=== PATIENT | female | born 1940 | race African-American/Black ===

== ENCOUNTER 2020-01-17 13:53 | Inpatient (IN) | payer OTHER ==
--- NOTE | 2020-01-17 14:24 | PDOC ---
*Physical Exam - Physical Exam General Appearance: Yes: Nourished, Appropriately Dressed HEENT: positive: Normal Voice, Hearing Grossly Normal, Other (No mastoid ecchymosis, no periorbital ecchymosis) Neck: positive: Trachea midline, Supple Respiratory/Chest: positive: Lungs Clear, Normal Breath Sounds Cardiovascular: positive: S1, S2. negative: Edema Gastrointestinal/Abdominal: positive: Soft. negative: Distended, Guarding, Rebound, Tenderness, Hernia, Mass Musculoskeletal: positive: Normal Inspection. negative: Decreased Range of Motion Extremity: positive: Normal Capillary Refill, Normal Inspection Integumentary: positive: Normal Color, Dry, Warm Neurologic: positive: greens cutter II-XII NML intact, Alert, Confused. negative: Facial Droop, Disoriented Heart Score/ECG Review - ECG Impressions Comment:: 01/17/20 17:43 HR 86, SR, RBB, LAD - no DARIANA/STD/TWI ED Treatment Course - LABORATORY CBC & Chemistry Diagram: 01/17/20 13:30 01/17/20 13:30 Medical Decision Making - Medical Decision Making 01/17/20 14:57 Patient seen and evaluated as pre-attending with Dr. Crump (PGY-I) and Dr. Linares (Attending) 79 y/o female with a PMHx of NIDDM, CHF and Dementia here s/p fall Patient reports she was walking from her bedroom to the bathroom when she fell backwards on her buttocks. Denies any head trauma or LOC. States she was ambulatory afterward and came to the hospital because her children were concerned. Patient was reported by EMR to be hyperglycemic (BS 500's) in the field. Reports she takes Metformin daily but didn't take her medication today. Dr. Crump spoke with patient's daughter who report a h/o of falls as well as worsening dementia over the last month. Also reports that patient is not on any diabetic medication and in general has a h/o poor adherence to her med ications following the of her spouse earlier this year. VS unremarkable No focal neurologic deficit on PE Will evaluate for fall etiology including cardiac (dysrhtymia, r/o ACS), infectious, electrolyte/metabolic disturbances IV hydration for hyperglycemia. As patient not on diabetic medications will also obtain VBG, check Ketones for possible HHS 01/17/20 16:01 Troponinemia 0.11 EKG without DARIANA as documented in EKG section of EMR Pateint requires admission for serial troponins 01/17/20 16:29 BNP 11k CK 2347 - ? rhabdo, will give additional IV hydration as patient not showing signs of hypervolemia on clinical exam No AG, HCO3 wnL - possibly HHS Corrected Na 144 Cr 3.2 - likely pre-renal 2/2 to decreased PO intake - IV hydration as noted above 01/17/20 17:[address] Crump [facility] for admission Clinical Impression: Hyperglycemia possibly 2/2 to HHS, Troponemia, ? Rhabdomyolysis, Progressive Alzheimer's 01/17/20 18:31 BS 482 s/p 2 L IV NS, K+ wnL - patient insulin naive -will give [address] Crump [facility] hospitalist. 01/17/20 18:43 Will sign out to oncoming resident/Dr. Poole for admission 01/17/20 18:57 Case d/w Dr. Carrera - will admit to telemetry S/p insulin, will recheck sugar (signing out to oncoming resident, Dr. Poole following) Discharge - Discharge Information Problems reviewed: Yes Clinical Impression/Diagnosis: Hyperglycemia, Elevated troponin, Fall, Rhabdomyolysis Condition: Fair - Admission Yes - Follow up/Referral - Patient Discharge Instructions - Post Discharge Activity
[2020-01-17 15:18] LABS: BASO % 0.6 % (0-2.0); EOS % 3.1 % (0-4.5); HEMATOCRIT 31.3 % (32.4-45.2); HEMOGLOBIN 10.6 GM/dL (10.7-15.3); MCH 28.9 pg (25.7-33.7); MCHC 33.8 g/dl (32.0-36.0); MEAN CELL VOLUME 85.6 fl (80-96); MEAN PLT VOLUME 11.8 fl (7.5-11.1); MONO % 7.4 % (3.8-10.2); NEUT % 70.9 % (42.8-82.8); PLATELET COUNT 109 K/MM3 (134-434); RBC 3.66 M/mm3 (3.60-5.2); RDW 17.9 % (11.6-15.6); WHITE BLOOD COUNT 5.1 K/mm3 (4.0-10.0)
[2020-01-17 15:24] LABS: INR 0.92 (0.83-1.09); PROTHROMBIN TIME (PATIENT) 10.9 SEC (9.7-13.0)
[2020-01-17 15:27] LABS: ACTIVATED PTT 28.4 SECONDS (25.2-36.5)
--- NOTE | 2020-01-17 15:31 | PDOC ---
History of Present Illness - General Chief Complaint: Injury Stated Complaint: FALL Time Seen by Provider: 01/17/20 15:05 - History of Present Illness Initial Comments: 01/17/20 15:43 79 y/o F hx of CAD s/p MN in 2017, CHF , NIDDM, HTN, CKD, gout, pacemaker ,CardioMEMS device, dementia presenting today BIBEM s/p fall. She reports getting out of bed and falling to the floor. there was no preceding chest pain, headache or shortness of breath and patient reports there was no LOC. ambulance called by son to scene. pt reports ambulating after incident with assistance, PCP: Dr. Petty, cards; Dr. Gabino Parrish, ROS: GENERAL/CONSTITUTIONAL: No fever or chills. No weakness. HEAD, EYES, EARS, NOSE AND THROAT: No change in vision. No ear pain or discharge. No sore throat. CARDIOVASCULAR: No chest pain or shortness of breath RESPIRATORY: No cough, wheezing, or hemoptysis. GASTROINTESTINAL: No nausea, vomiting, diarrhea or constipation. GENITOURINARY: No dysuria, frequency, or change in urination. MUSCULOSKELETAL: No joint or muscle swelling or pain. No neck or back pain. SKIN: No rash NEUROLOGIC: No headache, vertigo, loss of consciousness, or change in strength/sensation. ENDOCRINE: No increased thirst. No abnormal weight change HEMATOLOGIC/LYMPHATIC: No anemia, easy bleeding, or history of blood clots. ALLERGIC/IMMUNOLOGIC: No hives or skin allergy. PE: GENERAL: AO x1 to person. HEAD: No signs of trauma, normocephalic, atraumatic EYES: PERRLA, EOMI, sclera anicteric, conjunctiva clear ENT: Auricles normal inspection, hearing grossly normal, nares patent, oropharynx clear without exudates. Moist mucosa NECK: Normal ROM, supple, no lymphadenopathy, JVD, or masses LUNGS: No distress, speaks full sentences, clear to auscultation bilaterally HEART: Regular rate and rhythm, normal S1 and S2, no murmurs, rubs or gallops, peripheral pulses normal and equal bilaterally. ABDOMEN: Soft, nontender, normoactive bowel sounds. No guarding, no rebound. No masses EXTREMITIES : Normal inspection, Normal range of motion, no edema. No clubbing or cyanosis. NEUROLOGICAL: Cranial nerves II through XII grossly intact. Normal speech,, no focal sensorimotor deficits SKIN: Warm, Dry, normal turgor, no rashes or lesions noted. lidocaine patch on lower back. 01/17/20 15:54 01/17/20 16:13 01/17/20 16:19 01/17/20 16:58 01/17/20 18:46 Past History - Past Medical History Allergies/Adverse Reactions: Allergies Allergy/AdvReac Type Severity Reaction Status Date / Time No Known Allergies Allergy Verified 01/17/20 14:26 Home Medications: Ambulatory Orders Aspirin [Aspirin EC] 81 mg PO DAILY 01/17/20 Atorvastatin Ca [Lipitor] 80 mg PO HS 01/17/20 Isosorbibe Dinit/Hydralazine [Bidil Tablet] 20 - 37.5 mg PO TID 01/17/20 Metoprolol Succinate 100 mg PO DAILY 01/17/20 Nitroglycerin 0.3 mg SL PRN 01/17/20 Heparin - 5,000 unit SQ BID vial 01/24/20 Insulin Sliding Scale [Novolog Vial Sliding Scale -] 1 vial SQ ACHS units 01/24/20 Repaglinide [Prandin -] 1 mg PO TIDAC tablet 01/24/20 Furosemide [Lasix -] 40 mg PO DAILY tablet 01/27/20 hydrALAZINE HCL [Apresoline -] 10 mg PO BID #0 tablet 01/27/20 COPD: No CHF: Yes Diabetes: Yes HTN: Yes - Immunization History Immunization Up to Date: Yes - Psycho Social/Smoking Cessation Hx Smoking History: Never smoked Have you smoked in the past 12 months: No Information on smoking cessation initiated: No Hx Alcohol Use: No Drug/Substance Use Hx: No *Physical Exam - Vital Signs Last Vital Signs Temp Pulse Resp BP Pulse Ox 98.2 F 88 18 108/72 95 01/17/20 14:27 01/17/20 14:36 01/17/20 14:36 01/17/20 14:36 01/17/20 14:36 ED Treatment Course - LABORATORY CBC & Chemistry Diagram: 01/26/20 05:50 01/27/20 06:05 - ADDITIONAL ORDERS Additional order review: Laboratory Results 01/17/20 01/17/20 15:04 13:30 PT with INR 10.90 INR 0.92 POC Glucometer 495 05/18/20 05/18/20 15:04 13:30 RBC 3.66 MCV 85.6 MCHC 33.8 RDW 17.9 H MPV 11.8 H Neutrophils % 70.9 Lymphocytes % 18.0 Monocytes % 7.4 Eosinophils % 3.1 Basophils % 0.6 POC Glucometer 495 - RADIOLOGY Radiology Studies Ordered: Category Date Time Status CHEST X-RAY PORTABLE* [RAD] Stat Radiology 01/17/20 14:58 Ordered HIP & PELVIS-LEFT [RAD] Stat Radiology 01/17/20 14:58 Ordered HIP & PELVIS-RIGHT [RAD] Stat Radiology 01/17/20 14:58 Ordered Medical Decision Making - Medical Decision Making 01/17/20 16:20 79 y/o F hx of CAD s/p MN in 2017, CHF , NIDDM, HTN, CKD, gout, pacemaker ,CardioMEMS device, dementia presenting today BIBEM s/p fall. daughter: Yeni Hare; [phone] pt BG elevated in the field to 500's per daughter Yeni Hare: pt has been non-compliant over the last month or so with increased forgetfullness s/p of partner. expressing concerns about home health care repeat BGM 495 pt is insulin naive, fluids started 1LNS ekg. ;RBBB ventricular paced rhythm, LAD, no previous ekg for comparison discussion with JOC[facility] Key, and visiting nurse referral order put in place and discussed with daughter, daughter aware of this resource. 01/17/20 16:33 labs remarkable for elevated bnp and troponin repeat troponin ordered repeat bgm 481 after 350cc of NS pt being rehydrated slowly due to heart failure hx and elevated bnp Discharge - Discharge Information Problems reviewed: Yes Clinical Impression/Diagnosis: Hyperglycemia, Elevated troponin, Fall, Rhabdomyolysis Condition: Fair [facility]position: [facility] - Follow up/Referral - Patient Discharge Instructions - Post Discharge Activity
[2020-01-17] MEDS ORDERED: SODIUM CHLORIDE 0.9% 500 ML INFUS.BAG IV ONE ×2 (15:42→17:47)
[2020-01-17 15:46] LABS: ALBUMIN 3.2 g/dl (3.4-5.0); BILIRUBIN,TOTAL 0.5 mg/dL (0.2-1); BLOOD UREA NITROGEN 85.6 mg/dL (7-18); CREATININE 3.2 mg/dL (0.55-1.3); POTASSIUM 3.5 mmol/L (3.5-5.1); TOT PROT 6.1 g/dl (6.4-8.2)
--- NOTE | 2020-01-17 16:20 | PDOC ---
Documentation entered by Laura Chauhan SCRIBE, acting as scribe for Tanvir Linares MD. Tanvir Linares MD: This documentation has been prepared by the Tien chaney Brenda, SCRIBE, under my direction and personally reviewed by me in its entirety. I confirm that the documentation accurately reflects all work, treatment, procedures, and medical decision making performed by me. Attending Attestation - Resident Resident Name: Scott Crump - ED Attending Attestation I have performed the following: I have examined & evaluated the patient, The case was reviewed & discussed with the resident, I agree w/resident's findings & plan, Exceptions are as noted - HPI HPI: 01/17/20 15:24 The patient is an 79 year old female with a significant PMH of NIDDM, alzheimers dementia who presents to [facility] for evaluation s/p fall. Pt reports she was walking in her home when she tripped on the threshold and landed on her buttocks. Denies head strike or back pain. The patient denies chest pain, shortness of breath, headache and dizziness. Denies fever, chills, nausea, vomiting, diarrhea and constipation. Denies dysuria, frequency, urgency and hematuria. Per pt's daughter, the patient lost her partner and main screening tech last month and has barely gotten out of bed. Daughter is concerned that she is not safe alone and needs a home health aide. Per EMS, the pt's glucose was >500. Pt denies taking medications on a daily basis but daughter states she should be taking metformin. Allergies: NKA Past surgical history: Social history: No reported hx of tobacco use, alcohol use or illicit drug use. - Physicial Exam PE: 01/17/20 16:15 Agree with resident exam - Medical Decision Making 01/17/20 16:15 79yo F hx alzheimers presents to the ED with unwitnessed fall. Denies pain, no evidence significant trauma on exam Concern for unsafe conditions at home as pt lost her partner and main career guidance technician last month. Pt also spending most of the day inbed and not taking medications per her daughter W/u thus far concerning for non AG hyperglycemia, and trop leak EKG with conduction delays, no DARIANA Social work consulted Trauma w/u pending, plan to admit for possible syncope, trop leak Heart Score/ECG Review #1 01/17/20 16:19 EKG read and int by me: Sinus rhythm, rate 86. +LAD, RBBB, no DARIANA Discharge - Discharge Information Problems reviewed: Yes Clinical Impression/Diagnosis: Hyperglycemia, Elevated troponin, Fall, Rhabdomyolysis Condition: Fair [facility]position[facility] - Follow up/Referral - Patient Discharge Instructions - Post Discharge Activity
[2020-01-17 16:23] LABS: N-TERMINAL BNP 11536.4 pg/ml (5-450)
[2020-01-17 17:05] LABS: VENOUS PC02 38.2 mmHg (38-52); VENOUS PH 7.49 (7.31-7.41); VENOUS PO2 79.6 mmHg (28-48)
[2020-01-17] MEDS ORDERED: INSULIN REGULAR HUMAN 100 UNITS/ML *VIAL SQ ONE (18:29)
--- NOTE | 2020-01-17 19:33 | HP ---
Admitting History and Physical - Primary Care Physician PCP: Harrison Carrera - Admission Chief Complaint: FALL History of Present Illness: 79 year old female with a significant PMH of NIDDM, alzheimers dementia who presents to [facility] for evaluation s/p fall. Pt reports she was walking in her home when she tripped on the threshold and landed on her buttocks. Denies head strike or back pain. The patient denies chest pain, shortness of breath, headache and dizziness. Denies fever, chills, nausea, vomiting, diarrhea and constipation. Denies dysuria, frequency, urgency and hematuria. Per pt's daughter, the patient lost her partner and main uniform patrol police officer last month and has barely gotten out of bed. Daughter is concerned that she is not safe alone and needs a home health aide. Per EMS, the pt's glucose was >500. Pt denies taking medications on a daily basis but daughter states she should be taking metformin. 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 Endocrine: Yes: Diabetes Mellitus - Smoking History Smoking history: Never smoked Have you smoked in the past 12 months: No - Alcohol/Substance Use Hx Alcohol Use: No Home Medications - Allergies Allergies/Adverse Reactions: Allergies Allergy/AdvReac Type Severity Reaction Status Date / Time No Known Allergies Allergy Verified 01/17/20 14:26 - Home Medications Home Medications: Ambulatory Orders Aspirin [Aspirin EC] 81 mg PO DAILY 01/17/20 Atorvastatin Ca [Lipitor] 80 mg PO HS 01/17/20 Isosorbibe Dinit/Hydralazine [Bidil Tablet] 20 - 37.5 mg PO TID 01/17/20 Metoprolol Succinate 100 mg PO DAILY 01/17/20 Nitroglycerin 0.3 mg SL PRN 01/17/20 Heparin - 5,000 unit SQ BID vial 01/24/20 Insulin Sliding Scale [Novolog Vial Sliding Scale -] 1 vial SQ ACHS units 01/24/20 Repaglinide [Prandin -] 1 mg PO TIDAC tablet 01/24/20 Furosemide [Lasix -] 40 mg PO DAILY tablet 01/27/20 hydrALAZINE HCL [Apresoline -] 10 mg PO BID #0 tablet 01/27/20 Physical Examination Vital Signs: Vital Signs Temperature 98.2 F 01/17/20 14:27 Pulse Rate 88 01/17/20 14:36 Respiratory Rate 18 01/17/20 14:36 Blood Pressure 108/72 01/17/20 14:36 O2 Sat by Pulse Oximetry (%) 95 01/17/20 14:36 Constitutional: Yes: No Distress HENT: Yes: Atraumatic Neck: Yes: Supple Cardiovascular: Yes: Regular Rate and Rhythm Respiratory: Yes: CTA Bilaterally Gastrointestinal: Yes: Normal Bowel Sounds Extremities: Yes: WNL Edema: No Labs: CBC, BMP 01/17/20 13:30 01/17/20 13:30 Problem List - Problems (1) Elevated troponin Assessment/Plan: fu trend cardio consult Code(s): R79.89 - OTHER SPECIFIED ABNORMAL FINDINGS OF BLOOD CHEMISTRY (2) Fall Assessment/Plan: PT need snf Code(s): W19.XXXA - UNSPECIFIED FALL, INITIAL ENCOUNTER (3) Hyperglycemia Code(s): R73.9 - HYPERGLYCEMIA, UNSPECIFIED (4) Rhabdomyolysis Assessment/Plan: on ivf fu cpk Code(s): M62.82 - RHABDOMYOLYSIS (5) Dementia Code(s): F03.90 - UNSPECIFIED DEMENTIA WITHOUT BEHAVIORAL DISTURBANCE (6) Diabetes mellitus Assessment/Plan: on meds follow bgms Code(s): E11.9 - TYPE 2 DIABETES MELLITUS WITHOUT COMPLICATIONS Qualifiers: Diabetes mellitus type: type 2 Diabetes mellitus mcfp insulin use: without meterman use Diabetes mellitus complication status: without complication Qualified Code(s): E11.9 - Type 2 diabetes mellitus without complications (7) HTN (hypertension) Code(s): I10 - ESSENTIAL (PRIMARY) HYPERTENSION Qualifiers: Hypertension type: essential hypertension Qualified Code(s): I10 - E ssential (primary) hypertension (8) Presence of cardiac pacemaker Code(s): Z95.0 - PRESENCE OF CARDIAC PACEMAKER Assessment/Plan Laboratory Tests 01/17/20 01/17/20 01/17/20 13:30 13:30 13:30 WBC 5.1 RBC 3.66 Hgb 10.6 L Hct 31.3 L MCV 85.6 MCH 28.9 MCHC 33.8 RDW 17.9 H Plt Count 109 L MPV 11.8 H Absolute Neuts (auto) 3.6 Neutrophils % 70.9 Lymphocytes % 18.0 Monocytes % 7.4 Eosinophils % 3.1 Basophils % 0.6 Nucleated RBC % 0 PT with INR 10.90 INR 0.92 PTT (Actin FS) 28.4 VBG pH POC VBG pCO2 POC VBG pO2 VBG HCO3 VBG O2 Sat (Richard) VBG Base Excess Sodium 133 L Potassium 3.5 Chloride 93 L Carbon Dioxide 28 Anion Gap 11 BUN 85.6 H Creatinine 3.2 H Est GFR (CKD-EPI)AfAm 15.10 Est GFR (CKD-EPI)NonAf 13.03 POC Glucometer Random Glucose 542 H* Calcium 9.0 Total Bilirubin 0.5 AST 89 H ALT 52 Alkaline Phosphatase 99 Creatine Kinase Creatine Kinase Index CK-MB (CK-2) Troponin I B-Natriuretic Peptide 38776.4 H Total Protein 6.1 L Albumin 3.2 L Beta-Hydroxybutyrate 2.2 01/17/20 01/17/20 01/17/20 15:01 15:04 16:40 WBC RBC Hgb Hct MCV MCH MCHC RDW Plt Count MPV Absolute Neuts (auto) Neutrophils % Lymphocytes % Monocytes % Eosinophils % Basophils % Nucleated RBC % PT with INR INR PTT (Actin FS) VBG pH 7.49 H POC VBG pCO2 38.2 POC VBG pO2 79.6 H VBG HCO3 28.7 VBG O2 Sat (Richard) 96.6 H VBG Base Excess 5.0 H Sodium Potassium Chloride Carbon Dioxide Anion Gap BUN Creatinine Est GFR (CKD-EPI)AfAm Est GFR (CKD-EPI)NonAf POC Glucometer 495 Random Glucose Calcium Total Bilirubin AST ALT Alkaline Phosphatase Creatine Kinase 2347 H Creatine Kinase Index 0.6 CK-MB (CK-2) 15.1 H Troponin I 0.11 H B-Natriuretic Peptide Total Protein Albumin Beta-Hydroxybutyrate 01/17/20 01/17/20 18:12 18:15 WBC RBC Hgb Hct MCV MCH MCHC RDW Plt Count MPV Absolute Neuts (auto) Neutrophils % Lymphocytes % Monocytes % Eosinophils % Basophils % Nucleated RBC % PT with INR INR PTT (Actin FS) VBG pH POC VBG pCO2 POC VBG pO2 VBG HCO3 VBG O2 Sat (Richard) VBG Base Excess Sodium Potassium Chloride Carbon Dioxide Anion Gap BUN Creatinine Est GFR (CKD-EPI)AfAm Est GFR (CKD-EPI)NonAf POC Glucometer 481 Random Glucose Calcium Total Bilirubin AST ALT Alkaline Phosphatase Creatine Kinase Creatine Kinase Index CK-MB (CK-2) Troponin I 0.12 H B-Natriuretic Peptide Total Protein Albumin Beta-Hydroxybutyrate
[2020-01-17] MEDS: INSULIN SLIDING SCALE (NOVOLOG) 1 VIAL SQ SCH (23:01)
[2020-01-17] MEDS: ATORVASTATIN CA 80 MG TABLET (FP) PO SCH (23:04)
[2020-01-17] MEDS: HEPARIN NA (PORCINE) 5,000 UNITS/ML 1ML VIAL SQ SCH (23:04)
[2020-01-17] MEDS: SODIUM CHLORIDE 1,000 ML IV SCH (23:18)
[2020-01-18] MEDS: INSULIN SLIDING SCALE (NOVOLOG) 1 VIAL SQ SCH ×4 (06:47→22:11)
[2020-01-18 08:16] LABS: BASO % 0.4 % (0-2.0); EOS % 1.4 % (0-4.5); HEMATOCRIT 27.5 % (32.4-45.2); HEMOGLOBIN 9.3 GM/dL (10.7-15.3); LYMPH % 17.1 % (8-40); MCH 28.7 pg (25.7-33.7); MCHC 33.8 g/dl (32.0-36.0); MEAN CELL VOLUME 84.9 fl (80-96); MEAN PLT VOLUME 11.4 fl (7.5-11.1); MONO % 10.4 % (3.8-10.2); NEUT % 70.7 % (42.8-82.8); PLATELET COUNT 103 K/MM3 (134-434); RBC 3.24 M/mm3 (3.60-5.2); RDW 17.9 % (11.6-15.6); WHITE BLOOD COUNT 4.4 K/mm3 (4.0-10.0)
[2020-01-18 08:49] LABS: ALBUMIN 2.8 g/dl (3.4-5.0); BILIRUBIN,TOTAL 0.6 mg/dL (0.2-1); BLOOD UREA NITROGEN 75.3 mg/dL (7-18); CALCIUM 8.8 mg/dL (8.5-10.1); CREATININE 2.5 mg/dL (0.55-1.3); TOT PROT 5.3 g/dl (6.4-8.2)
[2020-01-18 09:05] LABS: EPI CELLS 30 /uL (0-25.1); HYALINE CASTS 0 /uL (0-3.1); PH,URINE 5.5 (5.0-8.0); URINE APPEARANCE CLOUDY; URINE BACTERIA 1529 /uL (0-1359); URINE BILIRUBIN NEGATIVE (NEGATIVE); URINE COLOR YELLOW; URINE GLUCOSE (UA) 1+ (NEGATIVE); URINE KETONE NEGATIVE (NEGATIVE); URINE LEUK ESTERASE NEGATIVE (NEGATIVE); URINE NITRITE NEGATIVE (NEGATIVE); URINE PROTEIN TRACE (NEGATIVE); URINE RBC 21 /uL (0-23.9); URINE UROBILINOGEN 0.2 mg/dL (0.2-1.0); URINE WBC 7 /uL (0-25.8)
[2020-01-18] MEDS: ASPIRIN COATED 81 MG TABLET.EC PO SCH (09:35)
[2020-01-18] MEDS: HEPARIN NA (PORCINE) 5,000 UNITS/ML 1ML VIAL SQ SCH ×2 (09:35→22:04)
--- NOTE | 2020-01-18 11:42 | EKG ---
Test Reason : Blood Pressure : / mmHG Vent. Rate : 086 BPM Atrial Rate : 086 BPM P-R Int : 184 ms QRS Dur : 140 ms QT Int : 434 ms P-R-T Axes : 029 -62 152 degrees QTc Int : 519 ms POOR DATA QUALITY, INTERPRETATION MAY BE ADVERSELY AFFECTED SINUS RHYTHM WITH MARKED SINUS ARRHYTHMIA WITH FREQUENT ventricular-paced complexes LEFT AXIS DEVIATION RIGHT BUNDLE BRANCH BLOCK LEFT VENTRICULAR HYPERTROPHY WITH REPOLARIZATION ABNORMALITY CANNOT RULE OUT SEPTAL INFARCT , AGE UNDETERMINED ABNORMAL ECG WHEN COMPARED WITH ECG OF 26-AUG-2011 18:43, ELECTRONIC VENTRICULAR PACEMAKER HAS REPLACED SINUS RHYTHM Confirmed by MD Son, Desmond ([id number]) on 01/18/2020 11:42:16 AM Referred By: Confirmed By:Desmond Cline MD
--- NOTE | 2020-01-18 12:18 | CON.CARD ---
Consult Consult Specialty:: Cardiology Referred by:: Dr. Carrera Reason for Consultation:: Cardiac evaluation - History of Present Illness Chief Complaint: Fall without LOC History of Present Illness: Patient is an 79 year old female with underlying history of CAD, OK, NIDDM, HTN, CKD, sick sinus syndrome s/p PPM, history of CHF and presence of CardioMEMS device who presented after falling to the floor getting out of the bed. She denies LOC. She denies chest pain, shortness of breath or palpitations. She denies fever or chills. She denies nausea, vomiting, diarrhea or abdominal pain. She denies headache or lightheadedness. She denies cough or expectorations. PCP: Dr. Petty, Cardiology: Dr. 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 Cardio/Vascular: Yes: CAD, CHF, HTN, Other (Pacemaker, CardioMEMS device) Renal/: Yes: Renal Inusuff Endocrine: Yes: Diabetes Mellitus - Past Surgical History Past Surgical History: Yes: Permanent Pacemaker Additional Surgical History: CardioMEMS device - Alcohol/Substance Use Hx Alcohol Use: No - Smoking History Smoking history: Never smoked Have you smoked in the past 12 months: No Home Medications - Allergies Allergies/Adverse Reactions: Allergies Allergy/AdvReac Type Severity Reaction Status Date / Time No Known Allergies Allergy Verified 01/17/20 14:26 - Home Medications Home Medications: Ambulatory Orders Aspirin [Aspirin EC] 81 mg PO DAILY 01/17/20 Atorvastatin Ca [Lipitor] 80 mg PO HS 01/17/20 Furosemide 60 mg PO BID 01/17/20 Isosorbibe Dinit/Hydralazine [Bidil Tablet] 20 - 37.5 mg PO TID 01/17/20 Metoprolol Succinate 100 mg PO DAILY 01/17/20 Nitroglycerin 0.3 mg SL PRN 01/17/20 Review of Systems - Review of Systems Constitutional: denies: Chills, Fever Cardiovascular: denies: Chest Pain, Palpitations, Shortness of Breath Respiratory: denies: Cough, Hemoptysis, Orthopnea, PND, SOB, SOB on Exertion Gastrointestinal: denies: Abdominal Pain, Constipation, Diarrhea, Melena, Nausea, Rectal Bleeding, Vomiting Genitourinary: denies: Dysuria, Hematuria Musculoskeletal: denies: Joint Pain Neurological: denies: Dizziness, Headache, Seizure, Syncope Vital Signs: Vital Signs Temperature 97.5 F L 01/18/20 10:44 Pulse Rate 90 01/18/20 10:44 Respiratory Rate 18 01/18/20 10:44 Blood Pressure 116/60 01/18/20 10:44 O2 Sat by Pulse Oximetry (%) 97 01/18/20 09:00 HENT: Yes: Atraumatic Neck: Yes: Supple Respiratory: Yes: CTA Bilaterally Gastrointestinal: Yes: Normal Bowel Sounds, Soft. No: Tenderness Cardiovascular: Yes: Regular Rate and Rhythm JVD: No Carotid Bruit: No PMI: Non-Displaced Heart Sounds: Yes: S1, S2. No: Gallop Murmur: No: Systolic Murmur, Diastolic Murmur Edema: No - Other Data Labs, Other Data: CBC, BMP 01/18/20 06:50 01/18/20 06:50 INR, PTT INR 0.92 (0.83-1.09) 01/17/20 13:30 Troponin, BNP 01/17/20 01/17/20 01/17/20 13:30 15:01 18:15 Troponin I 0.11 H 0.12 H B-Natriuretic Peptide 57428.4 H 01/17/20 21:40 Troponin I 0.11 H B-Natriuretic Peptide Sinus rhythm with sinus arrhythmia, RBBB Imaging - Results Chest X-ray: Report Reviewed EKG: Report Reviewed Problem List - Problems (1) CAD (coronary artery disease) Code(s): I25.10 - ATHSCL HEART DISEASE OF [place] CORONARY ARTERY W/O ANG PCTRS (2) Diabetes mellitus Code(s): E11.9 - TYPE 2 DIABETES MELLITUS WITHOUT COMPLICATIONS Qualifiers: Diabetes mellitus type: type 2 Diabetes mellitus half-way insulin use: without half-way use Diabetes mellitus complication status: without complication Qualified Code(s): E11.9 - Type 2 diabetes mellitus without complications (3) HTN (hypertension) Code(s): I10 - ESSENTIAL (PRIMARY) HYPERTENSION Qualifiers: Hypertension type: essential hypertension Qualified Code(s): I10 - Essential (primary) hypertension (4) Presence of cardiac pacemaker Code(s): Z95.0 - PRESENCE OF CARDIAC PACEMAKER (5) Elevated troponin Code(s): R79.89 - OTHER SPECIFIED ABNORMAL FINDINGS OF BLOOD CHEMISTRY (6) Fall Code(s): W19.XXXA - UNSPECIFIED FALL, INITIAL ENCOUNTER Assessment/Plan 1. Fall with weakness, no LOC 2. HTN 3. CAD with history of OK, angina pectoris 4. DM 5. History of CHF s/p CardioMEMS device 6. Sick sinus syndrome s/p PPM 7. CKD PLAN: 1. Continue Metoprolol ER 100 mg QD and ASA 81 mg QD 2. DVT prophylaxis 3. Lipitor 4. Monitor renal function and electrolytes. K supplement Further plans are to follow Stefan Colvin MD
--- NOTE | 2020-01-18 17:29 | CONSULT ---
Consult - text type - Consultation Consultation Note: NEUROLOGY CONSULTATION is greatly appreciated: This 79 yo RH "" woman lives alone but her son "helps." Apparently her partner and caregiver recently and she has failed to thrive on her own, apparently noncompliant with meds. PMH sig for DM, HTN, Cholesterol, ASHD, and "dementia." She is maintained on: Aspirin 81; Atorvastatin; Furosemide; Isosorbide; Metoprolol; and Nitroglycerin 0.3 mg SL PRN Admitted after fall at home. Patient cannot recall any prodromal symptoms. On admission Glucose= 542 mg%; VD=8677 IU/L. Urine WBC=7 XRays of hips and pelvis without fractures. REDDY: No evidence of external head trauma. No bruits. Cor reg. Neg Patricks. NEURO: Awake, alert cooperative and friendly (wants a hug and a kiss). Gives her age as 84. O x November. In [place]. Recalls [facility] but not December at 3 mins. Neg frontal release signs Speech fluent. CN II-XII: normal Motor: No drift or tremor. No cogwheeling. Normal strength. Normal reflexes except absent AJ's. Toes downgoing. Coord: No FTN dystaxia Sensory: Reduced vibration in the feet Gait: Wide-based, shuffling, unsteady, retropulsive. IMP: Non-focal exam sig for Moderate, B/L cerebral dysfunction (OMS, chronic features)- Most likely Alzheimer's Disease (AD). Diabetic Peripheral neuropathy Toxic-Metabolic Encephalopathy due to hyperglycemia Rhabdomyalysis due to fall, pressure changes. SUGGEST: Control BG, R/O occult infection Check B12, TSH, RPR and Follow CK down CT or MRI of brain (C-) PT for gait safety with walker. Will need home supervision or SNF level of care. Thank you very much, Gabino De Paz MD
--- NOTE | 2020-01-18 21:22 | PN ---
Progress Note, Physician History of Present Illness: No new complaints - Current Medication List Current Medications: Active Medications Aspirin (Ecotrin -) 81 mg PO DAILY [facility] Last Admin: 01/18/20 09:35 Dose: 81 mg Documented by: Atorvastatin Calcium (Lipitor -) 80 mg PO HS [facility] Last Admin: 01/17/20 23:04 Dose: 80 mg Documented by: Heparin Sodium (Porcine) (Heparin -) 5,000 unit SQ BID [facility] Last Admin: 01/18/20 09:35 Dose: 5,000 unit Documented by: Sodium Chloride (Normal Saline -) 1,000 mls @ 75 mls/hr IV ASDIR [facility] Last Admin: 01/17/20 23:18 Dose: 75 mls/hr Documented by: Insulin Aspart (Novolog Vial Sliding Scale -) 1 vial SQ ACHS [facility]; Protocol Last Admin: 01/18/20 17:08 Dose: 4 units Documented by: Metoprolol Succinate (Toprol Xl -) 100 mg PO DAILY [facility] Last Admin: 01/18/20 09:35 Dose: 100 mg Documented by: - Objective Vital Signs: Vital Signs Temperature 98.5 F 01/18/20 18:00 Pulse Rate 81 01/18/20 18:00 Respiratory Rate 18 01/18/20 18:00 Blood Pressure 133/75 01/18/20 18:00 O2 Sat by Pulse Oximetry (%) 97 01/18/20 09:00 Cardiovascular: Yes: WNL, Regular Rate and Rhythm Respiratory: Yes: WNL, Regular, CTA Bilaterally Gastrointestinal: Yes: WNL, Normal Bowel Sounds, Soft Labs: CBC, BMP 01/18/20 06:50 01/18/20 06:50 INR, PTT INR 0.92 (0.83-1.09) 01/17/20 13:30 Problem List - Problems (1) Fall Assessment/Plan: Neuro consulot noted Urine culture pending COVID pending Check MRI brain PT eval Will probably need placement Code(s): W19.XXXA - UNSPECIFIED FALL, INITIAL ENCOUNTER (2) Elevated troponin Assessment/Plan: Probable demand ischemia Code(s): R79.89 - OTHER SPECIFIED ABNORMAL FINDINGS OF BLOOD CHEMISTRY (3) HTN (hypertension) Assessment/Plan: Cont metoprolol/asa Code(s): I10 - ESSENTIAL (PRIMARY) HYPERTENSION Qualifiers: Hypertension type: essential hypertension Qualified Code(s): I10 - Essential (primary) hypertension (4) Diabetes mellitus Assessment/Plan: Cont sliding scale w/ coverage Code(s): E11.9 - TYPE 2 DIABETES MELLITUS WITHOUT COMPLICATIONS Qualifiers: Diabetes mellitus type: type 2 Diabetes mellitus [facility] insulin use: without termite control technician use Diabetes mellitus complication status: without complication Qualified Code(s): E11.9 - Type 2 diabetes mellitus without complications (5) CAD (coronary artery disease) Code(s): I25.10 - ATHSCL HEART DISEASE OF [place] CORONARY ARTERY W/O ANG PCTRS (6) Dementia Code(s): F03.90 - UNSPECIFIED DEMENTIA WITHOUT BEHAVIORAL DISTURBANCE
[2020-01-18] MEDS ORDERED: POTASSIUM CHLORIDE TABS 20 MEQ TABLET.ER (FP) PO ONE (21:30)
[2020-01-18] MEDS: ATORVASTATIN CA 80 MG TABLET (FP) PO SCH (22:04)
[2020-01-19] MEDS: INSULIN SLIDING SCALE (NOVOLOG) 1 VIAL SQ SCH ×4 (06:10→21:34)
[2020-01-19] MEDS: HEPARIN NA (PORCINE) 5,000 UNITS/ML 1ML VIAL SQ SCH ×2 (10:23→21:31)
[2020-01-19] MEDS: ASPIRIN COATED 81 MG TABLET.EC PO SCH (10:23)
--- NOTE | 2020-01-19 10:36 | PN ---
Progress Note, Physician History of Present Illness: Denies near or true syncope, denies chest pain, palpitations, dyspnea or recurrent fall. - Current Medication List Current Medications: Active Medications Aspirin (Ecotrin -) 81 mg PO DAILY [facility] Last Admin: 01/19/20 10:23 Dose: 81 mg Documented by: Atorvastatin Calcium (Lipitor -) 80 mg PO HS [facility] Last Admin: 01/18/20 22:04 Dose: 80 mg Documented by: Heparin Sodium (Porcine) (Heparin -) 5,000 unit SQ BID [facility] Last Admin: 01/19/20 10:23 Dose: 5,000 unit Documented by: Sodium Chloride (Normal Saline -) 1,000 mls @ 75 mls/hr IV ASDIR [facility] Last Admin: 01/17/20 23:18 Dose: 75 mls/hr Documented by: Insulin Aspart (Novolog Vial Sliding Scale -) 1 vial SQ ACHS [facility]; Protocol Last Admin: 01/19/20 06:10 Dose: 4 units Documented by: Metoprolol Succinate (Toprol Xl -) 100 mg PO DAILY [facility] Last Admin: 01/19/20 10:23 Dose: 100 mg Documented by: - Objective Vital Signs: Vital Signs Temperature 97.5 F L 01/19/20 10:23 Pulse Rate 76 01/19/20 10:23 Respiratory Rate 20 01/19/20 10:23 Blood Pressure 109/46 L 01/19/20 10:23 O2 Sat by Pulse Oximetry (%) 98 01/18/20 21:00 Constitutional: Yes: No Distress, Calm Neck: Yes: Supple Cardiovascular: Yes: Regular Rate and Rhythm Respiratory: Yes: Regular, CTA Bilaterally Gastrointestinal: Yes: Normal Bowel Sounds, Soft Edema: No Labs: CBC, BMP 01/18/20 06:50 01/18/20 06:50 INR, PTT INR 0.92 (0.83-1.09) 01/17/20 13:30 Assessment/Plan Problem List - Problems (1) CAD (coronary artery disease) Code(s): I25.10 - ATHSCL HEART DISEASE OF [place] CORONARY ARTERY W/O ANG PCTRS (2) Diabetes mellitus Code(s): E11.9 - TYPE 2 DIABETES MELLITUS WITHOUT COMPLICATIONS Qualifiers: Diabetes mellitus type: type 2 Diabetes mellitus prison insulin use: without prison use Diabetes mellitus complication status: without co mplication Qualified Code(s): E11.9 - Type 2 diabetes mellitus without co mplications (3) HTN (hypertension) Code(s): I10 - ESSENTIAL (PRIMARY) HYPERTENSION Qualifiers: Hypertension type: essential hypertension Qualified Code(s): I10 - Essential (primary) hypertension (4) Presence of cardiac pacemaker Code(s): Z95.0 - PRESENCE OF CARDIAC PACEMAKER (5) Elevated troponin Code(s): R79.89 - OTHER SPECIFIED ABNORMAL FINDINGS OF BLOOD CHEMISTRY (6) Fall Code(s): W19.XXXA - UNSPECIFIED FALL, INITIAL ENCOUNTER Assessment/Plan 1. Fall with weakness, no LOC 2. HTN 3. CAD with history of [place], angina pectoris 4. DM with peripheral neuropathy 5. CHF s/p CardioMEMS device 6. Sick sinus syndrome s/p PPM 7. CKD 8. Toxic-Metabolic Encephalopathy due to hyperglycemia 9. Dementia 10. Hyperlipidemia PLAN: 1. Continue Metoprolol ER 100 mg QD and ASA 81 mg QD 2. DVT prophylaxis 3. Lipitor 80 qd 4. Monitor renal function and electrolytes. K supplement 5. Neuro recommendations noted 6. Eventual f/u with Dr. Desmond Parrish at [facility]
--- NOTE | 2020-01-19 17:19 | PN ---
Progress Note, Physician History of Present Illness: stable - Current Medication List Current Medications: Active Medications Aspirin (Ecotrin -) 81 mg PO DAILY [facility] Last Admin: 01/19/20 10:23 Dose: 81 mg Documented by: Atorvastatin Calcium (Lipitor -) 80 mg PO HS [facility] Last Admin: 01/18/20 22:04 Dose: 80 mg Documented by: Heparin Sodium (Porcine) (Heparin -) 5,000 unit SQ BID [facility] Last Admin: 01/19/20 10:23 Dose: 5,000 unit Documented by: Sodium Chloride (Normal Saline -) 1,000 mls @ 75 mls/hr IV ASDIR [facility] Last Admin: 01/17/20 23:18 Dose: 75 mls/hr Documented by: Insulin Aspart (Novolog Vial Sliding Scale -) 1 vial SQ ACHS [facility]; Protocol Last Admin: 01/19/20 12:03 Dose: 6 units Documented by: Metoprolol Succinate (Toprol Xl -) 100 mg PO DAILY [facility] Last Admin: 01/19/20 10:23 Dose: 100 mg Documented by: - Objective Vital Signs: Vital Signs Temperature 97.7 F 01/19/20 14:10 Pulse Rate 79 01/19/20 14:10 Respiratory Rate 20 01/19/20 14:10 Blood Pressure 102/57 L 01/19/20 14:10 O2 Sat by Pulse Oximetry (%) 98 01/18/20 21:00 Constitutional: Yes: No Distress HENT: Yes: Atraumatic Neck: Yes: Supple Cardiovascular: Yes: Regular Rate and Rhythm Respiratory: Yes: CTA Bilaterally Gastrointestinal: Yes: Normal Bowel Sounds Extremities: Yes: WNL Edema: No Neurological: Yes: Alert, Oriented Labs: CBC, BMP 01/18/20 06:50 01/18/20 06:50 INR, PTT INR 0.92 (0.83-1.09) 01/17/20 13:30 Problem List - Problems (1) Elevated troponin Assessment/Plan: trending..staying in same range Code(s): R79.89 - OTHER SPECIFIED ABNORMAL FINDINGS OF BLOOD CHEMISTRY (2) Fall Assessment/Plan: PT need snf Code(s): W19.XXXA - UNSPECIFIED FALL, INITIAL ENCOUNTER (3) Hyperglycemia Code(s): R73.9 - HYPERGLYCEMIA, UNSPECIFIED (4) Rhabdomyolysis Assessment/Plan: on ivf monitor cpk Code(s): M62.82 - RHABDOMYOLYSIS (5) CAD (coronary artery disease) Code(s): I25.10 - ATHSCL HEART DISEASE OF [place] CORONARY ARTERY W/O ANG PCTRS (6) Dementia Code(s): F03.90 - UNSPECIFIED DEMENTIA WITHOUT BEHAVIORAL DISTURBANCE (7) Diabetes mellitus Assessment/Plan: on meds follow bgms Code(s): E11.9 - TYPE 2 DIABETES MELLITUS WITHOUT COMPLICATIONS Qualifiers: Diabetes mellitus type: type 2 Diabetes mellitus [facility] insulin use: without [facility] use Diabetes mellitus complication status: without complication Qualified Code(s): E11.9 - Type 2 diabetes mellitus without complications (8) HTN (hypertension) Code(s): I10 - ESSENTIAL (PRIMARY) HYPERTENSION Qualifiers: Hypertension type: essential hypertension Qualified Code(s): I10 - Essential (primary) hypertension (9) Presence of cardiac pacemaker Code(s): Z95.0 - PRESENCE OF CARDIAC PACEMAKER
[2020-01-19] MEDS: ATORVASTATIN CA 80 MG TABLET (FP) PO SCH (21:31)
[2020-01-19] MEDS: SODIUM CHLORIDE 1,000 ML IV SCH (21:34)
[2020-01-20] MEDS: INSULIN SLIDING SCALE (NOVOLOG) 1 VIAL SQ SCH ×4 (06:19→21:41)
[2020-01-20 07:32] LABS: BASO % 0.6 % (0-2.0); EOS % 2.9 % (0-4.5); HEMATOCRIT 26.2 % (32.4-45.2); HEMOGLOBIN 8.9 GM/dL (10.7-15.3); LYMPH % 22.7 % (8-40); MCHC 33.9 g/dl (32.0-36.0); MEAN CELL VOLUME 85.4 fl (80-96); MEAN PLT VOLUME 11.5 fl (7.5-11.1); MONO % 12.2 % (3.8-10.2); NEUT % 61.6 % (42.8-82.8); PLATELET COUNT 121 K/MM3 (134-434); RBC 3.06 M/mm3 (3.60-5.2); RDW 18.3 % (11.6-15.6); WHITE BLOOD COUNT 3.9 K/mm3 (4.0-10.0)
[2020-01-20 08:18] LABS: ALBUMIN 2.6 g/dl (3.4-5.0); BILIRUBIN,TOTAL 0.4 mg/dL (0.2-1); BLOOD UREA NITROGEN 61.4 mg/dL (7-18); CALCIUM 8.3 mg/dL (8.5-10.1); CREATININE 2.2 mg/dL (0.55-1.3); POTASSIUM 3.6 mmol/L (3.5-5.1); TOT PROT 4.9 g/dl (6.4-8.2)
--- NOTE | 2020-01-20 09:40 | PN ---
Progress Note, Physician History of Present Illness: Denies near or true syncope, denies chest pain, palpitations, dyspnea or recurrent fall. - Current Medication List Current Medications: Active Medications Aspirin (Ecotrin -) 81 mg PO DAILY [facility] Last Admin: 01/19/20 10:23 Dose: 81 mg Documented by: Atorvastatin Calcium (Lipitor -) 80 mg PO HS [facility] Last Admin: 01/19/20 21:31 Dose: 80 mg Documented by: Heparin Sodium (Porcine) (Heparin -) 5,000 unit SQ BID [facility] Last Admin: 01/19/20 21:31 Dose: 5,000 unit Documented by: Sodium Chloride (Normal Saline -) 1,000 mls @ 75 mls/hr IV ASDIR [facility] Last Admin: 01/19/20 21:34 Dose: Not Given Documented by: Insulin Aspart (Novolog Vial Sliding Scale -) 1 vial SQ ACHS [facility]; Protocol Last Admin: 01/20/20 06:19 Dose: 4 units Documented by: Metoprolol Succinate (Toprol Xl -) 100 mg PO DAILY [facility] Last Admin: 01/19/20 10:23 Dose: 100 mg Documented by: - Objective Vital Signs: Vital Signs Temperature 97.6 F 01/20/20 05:00 Pulse Rate 81 01/20/20 05:00 Respiratory Rate 18 01/20/20 05:00 Blood Pressure 102/50 L 01/20/20 05:00 O2 Sat by Pulse Oximetry (%) 94 L 01/19/20 21:00 Constitutional: Yes: No Distress, Calm Neck: Yes: Supple Cardiovascular: Yes: Regular Rate and Rhythm Respiratory: Yes: Regular, CTA Bilaterally Gastrointestinal: Yes: Normal Bowel Sounds, Soft Edema: No Labs: CBC, BMP 01/20/20 05:45 01/20/20 05:45 INR, PTT INR 0.92 (0.83-1.09) 01/17/20 13:30 Assessment/Plan Problem List - Problems (1) CAD (coronary artery disease) Code(s): I25.10 - ATHSCL HEART DISEASE OF [place] CORONARY ARTERY W/O ANG PCTRS (2) Diabetes mellitus Code(s): E11.9 - TYPE 2 DIABETES MELLITUS WITHOUT COMPLICATIONS Qualifiers: Diabetes mellitus type: type 2 Diabetes mellitus prison insulin use: without prison use Diabetes mellitus complication status: without co mplication Qualified Code(s): E11.9 - Type 2 diabetes mellitus without co mplications (3) HTN (hypertension) Code(s): I10 - ESSENTIAL (PRIMARY) HYPERTENSION Qualifiers: Hypertension type: essential hypertension Qualified Code(s): I10 - Essential (primary) hypertension (4) Presence of cardiac pacemaker Code(s): Z95.0 - PRESENCE OF CARDIAC PACEMAKER (5) Elevated troponin Code(s): R79.89 - OTHER SPECIFIED ABNORMAL FINDINGS OF BLOOD CHEMISTRY (6) Fall Code(s): W19.XXXA - UNSPECIFIED FALL, INITIAL ENCOUNTER Assessment/Plan 1. Fall with weakness, no LOC 2. HTN 3. CAD with history of [place], angina pectoris 4. DM with peripheral neuropathy 5. CHF s/p CardioMEMS device 6. Sick sinus syndrome s/p PPM 7. Acute on CKD improving 8. Toxic-Metabolic Encephalopathy due to hyperglycemia 9. Dementia 10. Hyperlipidemia PLAN: 1. Continue Metoprolol ER 100 mg QD and ASA 81 mg QD 2. DVT prophylaxis 3. Lipitor 80 qd 4. Monitor renal function and electrolytes. 5. Neuro recommendations noted 6. D/c planning, eventual f/u with Dr. Desmond Parrish at [facility]
[2020-01-20] MEDS: HEPARIN NA (PORCINE) 5,000 UNITS/ML 1ML VIAL SQ SCH ×2 (09:54→21:12)
[2020-01-20] MEDS: ASPIRIN COATED 81 MG TABLET.EC PO SCH (09:54)
--- NOTE | 2020-01-20 17:24 | CONSULT ---
Consult - text type - Consultation Consultation Note: Chart reviewed. Case discussed with Dr Carrera. Pt with h/o admission to this hospital in 2010 with Lipase of 1188 on 08.26.11. During current admission Creatinine has fluctuated from 3.2 to 1.8. FS has been fluctuating between low 100 to 250 in the last 48 hrs on Novolog sliding scale. Pt has needed around 16 units of Insulin per day. Rec: Start Levemir 10 units daily at HS Change Novolog SS coverage TID premeals only as follow <200: None 200 to 250: 2 units 251 to 300: 4 units 301 to 350: 6 units 351 to 400: 8 units >400: Call MD Would not start DDP4 b/o h/o Pancreatitis. Metformin is cont raindicated b/o renal insufficiency. If pt is to be discharged home and is not able to take Insulin at home, she may be started on Prandin 1mg BID premeal and dose adjusted as necessary according to FS record.
[2020-01-20] MEDS: ATORVASTATIN CA 80 MG TABLET (FP) PO SCH (21:16)
[2020-01-20] MEDS ORDERED: LORazepam 0.5 MG TABLET PO ONE (22:15)
--- NOTE | 2020-01-20 22:40 | PN ---
Progress Note, Physician History of Present Illness: No new complaints - Current Medication List Current Medications: Active Medications Aspirin (Ecotrin -) 81 mg PO DAILY [facility] Last Admin: 01/20/20 09:54 Dose: 81 mg Documented by: Atorvastatin Calcium (Lipitor -) 80 mg PO HS [facility] Last Admin: 01/20/20 21:16 Dose: 80 mg Documented by: Heparin Sodium (Porcine) (Heparin -) 5,000 unit SQ BID [facility] Last Admin: 01/20/20 21:12 Dose: 5,000 unit Documented by: Sodium Chloride (Normal Saline -) 1,000 mls @ 75 mls/hr IV ASDIR [facility] Last Admin: 01/19/20 21:34 Dose: Not Given Documented by: Insulin Aspart (Novolog Vial Sliding Scale -) 1 vial SQ [facility]; Protocol Last Admin: 01/20/20 21:41 Dose: Not Given Documented by: Metoprolol Succinate (Toprol Xl -) 100 mg PO DAILY [facility] Last Admin: 01/20/20 09:54 Dose: 100 mg Documented by: Repaglinide (Prandin -) 1 mg PO BID@0700,1700 [facility] - Objective Vital Signs: Vital Signs Temperature 97.5 F L 01/20/20 18:00 Pulse Rate 89 01/20/20 18:00 Respiratory Rate 20 01/20/20 18:00 Blood Pressure 108/64 01/20/20 18:00 O2 Sat by Pulse Oximetry (%) 94 L 01/20/20 09:00 Neck: Yes: WNL, Supple Cardiovascular: Yes: WNL, Regular Rate and Rhythm Respiratory: Yes: WNL, Regular, CTA Bilaterally Gastrointestinal: Yes: WNL, Normal Bowel Sounds, Soft Labs: CBC, BMP 01/20/20 05:45 01/20/20 05:45 INR, PTT INR 0.92 (0.83-1.09) 01/17/20 13:30 Problem List - Problems (1) Fall Assessment/Plan: Neuro consulot noted Urine culture pending COVID pending Check MRI brain PT eval Will probably need placement Code(s): W19.XXXA - UNSPECIFIED FALL, INITIAL ENCOUNTER (2) Elevated troponin Assessment/Plan: Probable demand ischemia Cont to trend Increase CPK ?Rhabdo Cont IVF Code(s): R79.89 - OTHER SPECIFIED ABNORMAL FINDINGS OF BLOOD CHEMISTRY (3) HTN (hypertension) Assessment/Plan: Cont metoprolol/asa Code(s): I10 - ESSENTIAL (PRIMARY) HYPERTENSION Qualifiers: Hypertension type: essential hypertension Qualified Code(s): I10 - Essential (primary) hypertension (4) Diabetes mellitus Assessment/Plan: Cont sliding scale w/ coverage Endo consult noted Prandin added Code(s): E11.9 - TYPE 2 DIABETES MELLITUS WITHOUT COMPLICATIONS Qualifiers: Diabetes mellitus type: type 2 Diabetes mellitus shelter insulin use: without shelter use Diabetes mellitus complication status: without complication Qualified Code(s): E11.9 - Type 2 diabetes mellitus without complications (5) CAD (coronary artery disease) Code(s): I25.10 - ATHSCL HEART DISEASE OF [place] CORONARY ARTERY W/O ANG PCTRS (6) Dementia Code(s): F03.90 - UNSPECIFIED DEMENTIA WITHOUT BEHAVIORAL DISTURBANCE
[2020-01-21] MEDS: INSULIN SLIDING SCALE (NOVOLOG) 1 VIAL SQ SCH ×4 (06:08→21:55)
[2020-01-21] MEDS: REPAGLINIDE 0.5 MG TABLET (FP) PO SCH ×2 (06:23→18:45)
[2020-01-21 07:34] LABS: BASO % 1.1 % (0-2.0); EOS % 3.1 % (0-4.5); HEMATOCRIT 29.1 % (32.4-45.2); HEMOGLOBIN 9.7 GM/dL (10.7-15.3); MCH 28.7 pg (25.7-33.7); MCHC 33.2 g/dl (32.0-36.0); MEAN CELL VOLUME 86.7 fl (80-96); MEAN PLT VOLUME 11.4 fl (7.5-11.1); MONO % 10.9 % (3.8-10.2); NEUT % 57.9 % (42.8-82.8); PLATELET COUNT 136 K/MM3 (134-434); RBC 3.36 M/mm3 (3.60-5.2); RDW 18.4 % (11.6-15.6); WHITE BLOOD COUNT 4.5 K/mm3 (4.0-10.0)
[2020-01-21 07:52] LABS: ALBUMIN 2.9 g/dl (3.4-5.0); BILIRUBIN,TOTAL 0.5 mg/dL (0.2-1); BLOOD UREA NITROGEN 54.3 mg/dL (7-18); CALCIUM 8.7 mg/dL (8.5-10.1); CREATININE 2.1 mg/dL (0.55-1.3); TOT PROT 5.6 g/dl (6.4-8.2)
[2020-01-21] MEDS: SODIUM CHLORIDE 1,000 ML IV SCH ×2 (09:00→21:54)
[2020-01-21] MEDS: HEPARIN NA (PORCINE) 5,000 UNITS/ML 1ML VIAL SQ SCH ×2 (09:25→21:54)
[2020-01-21] MEDS: ASPIRIN COATED 81 MG TABLET.EC PO SCH (09:25)
--- NOTE | 2020-01-21 09:36 | PN ---
Progress Note (short form) - Note Progress Note: No acute cardiac issues, pending d/c planning Vital Signs Temperature 98.5 F 01/21/20 09:00 Pulse Rate 78 01/21/20 09:00 Respiratory Rate 20 01/21/20 09:00 Blood Pressure 102/41 L 01/21/20 09:00 O2 Sat by Pulse Oximetry (%) 94 L 01/20/20 21:00 Cardiovascular: Yes: Regular Rate and Rhythm Respiratory: Yes: Regular, CTA Bilaterally Edema: No CBC, BMP 01/21/20 07:05 01/21/20 07:05 Active Medications Aspirin (Ecotrin -) 81 mg PO DAILY [facility] Last Admin: 01/21/20 09:25 Dose: 81 mg Documented by: Atorvastatin Calcium (Lipitor -) 80 mg PO HS [facility] Last Admin: 01/20/20 21:16 Dose: 80 mg Documented by: Heparin Sodium (Porcine) (Heparin -) 5,000 unit SQ BID [facility] Last Admin: 01/21/20 09:25 Dose: 5,000 unit Documented by: Sodium Chloride (Normal Saline -) 1,000 mls @ 75 mls/hr IV ASDIR [facility] Last Admin: 01/19/20 21:34 Dose: Not Given Documented by: Insulin Aspart (Novolog Vial Sliding Scale -) 1 vial SQ ACHS [facility]; Protocol Last Admin: 01/21/20 06:08 Dose: Not Given Documented by: Metoprolol Succinate (Toprol Xl -) 100 mg PO DAILY [facility] Last Admin: 01/21/20 09:24 Dose: 100 mg Documented by: Repaglinide (Prandin -) 1 mg PO BID@0700,1700 [facility] Last Admin: 01/21/20 06:23 Dose: 1 mg Documented by: Assessment/Plan Problem List - Problems (1) CAD (coronary artery disease) Code(s): I25.10 - ATHSCL HEART DISEASE OF [place] CORONARY ARTERY W/O ANG PCTRS (2) Diabetes mellitus Code(s): E11.9 - TYPE 2 DIABETES MELLITUS WITHOUT COMPLICATIONS Qualifiers: Diabetes mellitus type: type 2 Diabetes mellitus software project manager insulin use: without software project manager use Diabetes mellitus complication status: without complication Qualified Code(s): E11.9 - Type 2 diabetes mellitus without complications (3) HTN (hypertension) Code(s): I10 - ESSENTIAL (PRIMARY) HYPERTENSION Qualifiers: Hypertension type: essential hypertension Qualified Code(s): I10 - Essential (primary) hypertension (4) Presence of cardiac pacemaker Code(s): Z95.0 - PRESENCE OF CARDIAC PACEMAKER (5) Elevated troponin Code(s): R79.89 - OTHER SPECIFIED ABNORMAL FINDINGS OF BLOOD CHEMISTRY (6) Fall Code(s): W19.XXXA - UNSPECIFIED FALL, INITIAL ENCOUNTER Assessment/Plan 1. Fall with weakness, no LOC 2. HTN 3. CAD with history of [place], angina pectoris 4. DM with peripheral neuropathy 5. CHF s/p CardioMEMS device 6. Sick sinus syndrome s/p PPM 7. Acute on CKD improving 8. Toxic-Metabolic Encephalopathy due to hyperglycemia 9. Dementia 10. Hyperlipidemia PLAN: 1. Continue Metoprolol ER 100 mg QD and ASA 81 mg QD 2. Lipitor 80 qd 3. Monitor renal function and electrolytes. 4 D/c planning, eventual f/u with Dr. Desmond Parrish at [facility]
--- NOTE | 2020-01-21 13:10 | CONSULT ---
Consult Consult Specialty:: Nephrology Reason for Consultation:: WILTON - History of Present Illness Chief Complaint: s/p fall History of Present Illness: Pt is an 79 year old female with pmhx of dm and alzheimers dementia who presents after a fall. She is confused and unable to provide accurate history. She denies chest pain. She denies head trauma. She was also hyperglycemic. She was found to be in renal failure and found to be in rhabo. She denies dysuria or hematuria. She had history of cad and htn as well. 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 Cardio/Vascular: Yes: CAD, CHF, HTN, Other (Pacemaker, CardioMEMS device) Renal/: Yes: Renal Inusuff Endocrine: Yes: Diabetes Mellitus - Past Surgical History Past Surgical History: Yes: Permanent Pacemaker Additional Surgical History: CardioMEMS device - Alcohol/Substance Use Hx Alcohol Use: No - Smoking History Smoking history: Never smoked Have you smoked in the past 12 months: No Home Medications - Allergies Allergies/Adverse Reactions: Allergies Allergy/AdvReac Type Severity Reaction Status Date / Time No Known Allergies Allergy Verified 01/17/20 14:26 - Home Medications Home Medications: Ambulatory Orders Aspirin [Aspirin EC] 81 mg PO DAILY 01/17/20 Atorvastatin Ca [Lipitor] 80 mg PO HS 01/17/20 Furosemide 60 mg PO BID 01/17/20 Isosorbibe Dinit/Hydralazine [Bidil Tablet] 20 - 37.5 mg PO TID 01/17/20 Metoprolol Succinate 100 mg PO DAILY 01/17/20 Nitroglycerin 0.3 mg SL PRN 01/17/20 Family Medical History Family History: Denies Review of Systems - Review of Systems Constitutional: reports: No Symptoms Eyes: reports: No Symptoms HENT: reports: No Symptoms Neck: reports: No Symptoms Cardiovascular: reports: No Symptoms Respiratory: reports: No Symptoms Gastrointestinal: reports: No Symptoms Genitourinary: reports: No Symptoms Musculoskeletal: reports: No Symptoms Integumentary: reports: No Symptoms Neurological: reports: No Symptoms Endocrine: reports: No Symptoms Hematology/Lymphatic: reports: No Symptoms Psychiatric: reports: No Symptoms Physical Exam Vital Signs: Vital Signs Temperature 98.5 F 01/21/20 09:00 Pulse Rate 78 01/21/20 09:00 Respiratory Rate 20 05/22/20 09:00 Blood Pressure 102/41 L 01/21/20 09:00 O2 Sat by Pulse Oximetry (%) 94 L 01/21/20 09:00 Eyes: Yes: Conjunctiva Clear HENT: Yes: Atraumatic Neck: Yes: Supple Cardiovascular: Yes: S1, S2 Respiratory: Yes: CTA Bilaterally Gastrointestinal: Yes: Soft Renal/: Yes: WNL Musculoskeletal: Yes: WNL Edema: No Neurological: Yes: Confusion Labs: CBC, BMP 01/21/20 07:05 01/21/20 07:05 Imaging - Results Chest X-ray: Report Reviewed Problem List - Problems (1) CAD (coronary artery disease) Code(s): I25.10 - ATHSCL HEART DISEASE OF [place] CORONARY ARTERY W/O ANG PCTRS (2) Rhabdomyolysis Code(s): M62.82 - RHABDOMYOLYSIS Assessment/Plan Current Medications Generic Name Dose Route Start Last Admin Trade Name Freq PRN Reason Stop Dose Admin Aspirin 81 mg 01/18/20 10:00 01/21/20 09:25 Ecotrin - PO 81 mg DAILY ANASTASIYA Administration Atorvastatin Calcium 80 mg 01/17/20 22:00 01/20/20 21:16 Lipitor - PO 80 mg HS ANASTASIYA Administration Heparin Sodium (Porcine) 5,000 unit 01/17/20 22:00 01/21/20 09:25 Heparin - SQ 5,000 unit BID ANASTASIYA Administration Sodium Chloride 1,000 mls @ 75 mls/hr 01/17/20 19:45 01/19/20 21:34 Normal Saline - IV Not Given ASDIR ANASTASIYA Insulin Aspart 1 vial 01/17/20 22:00 01/21/20 12:51 Novolog Vial Sliding Scale - SQ 2 units ACHS ANASTASIYA Administration Protocol Metoprolol Succinate 100 mg 01/18/20 10:00 01/21/20 09:24 Toprol Xl - PO 100 mg DAILY ANASTASIYA Administration Repaglinide 1 mg 01/21/20 07:00 01/21/20 06:23 Prandin - PO 1 mg BID@0700,1700 ANASTASIYA Administration Laboratory Tests 08/30/11 01/17/20 01/17/20 12:04 13:30 15:01 Creatinine 1.5 H D 3.2 H Creatine Kinase 2347 H 01/17/20 01/18/20 01/18/20 21:40 06:50 20:30 Creatinine 2.5 H Creatine Kinase 2284 H 2875 H 01/19/20 01/20/20 01/21/20 18:30 05:45 07:05 Creatinine 2.2 H 2.1 H Creatine Kinase 2226 H 2395 H Impression 1. WILTON 2. CKD 3. rhabdo 4. s/p fall 5. hld 6. cad 7. dementia Plan - cont fluids - can give lasix if she develops overload - may need to decrease statin - renal function improving - repeat labs in am
--- NOTE | 2020-01-21 17:03 | PN ---
Progress Note, Physician - Current Medication List Current Medications: Active Medications Aspirin (Ecotrin -) 81 mg PO DAILY [facility] Last Admin: 01/21/20 09:25 Dose: 81 mg Documented by: Atorvastatin Calcium (Lipitor -) 80 mg PO HS [facility] Last Admin: 01/20/20 21:16 Dose: 80 mg Documented by: Heparin Sodium (Porcine) (Heparin -) 5,000 unit SQ BID [facility] Last Admin: 01/21/20 09:25 Dose: 5,000 unit Documented by: Sodium Chloride (Normal Saline -) 1,000 mls @ 75 mls/hr IV ASDIR [facility] Last Admin: 01/19/20 21:34 Dose: Not Given Documented by: Insulin Aspart (Novolog Vial Sliding Scale -) 1 vial SQ ACHS [facility]; Protocol Last Admin: 01/21/20 12:51 Dose: 2 units Documented by: Metoprolol Succinate (Toprol Xl -) 100 mg PO DAILY [facility] Last Admin: 01/21/20 09:24 Dose: 100 mg Documented by: Repaglinide (Prandin -) 1 mg PO BID@0700,1700 [facility] Last Admin: 01/21/20 06:23 Dose: 1 mg Documented by: - Objective Vital Signs: Vital Signs Temperature 98.5 F 01/21/20 14:00 Pulse Rate 86 01/21/20 14:00 Respiratory Rate 20 01/21/20 14:00 Blood Pressure 110/67 01/21/20 14:00 O2 Sat by Pulse Oximetry (%) 94 L 01/21/20 09:00 Constitutional: Yes: No Distress HENT: Yes: Atraumatic Neck: Yes: Supple Cardiovascular: Yes: Regular Rate and Rhythm Respiratory: Yes: CTA Bilaterally Gastrointestinal: Yes: Normal Bowel Sounds Extremities: Yes: WNL Edema: No Neurological: Yes: Alert Labs: CBC, BMP 01/21/20 07:05 01/21/20 07:05 INR, PTT INR 0.92 (0.83-1.09) 01/17/20 13:30 Problem List - Problems (1) Elevated troponin Assessment/Plan: trending..staying in same range Code(s): R79.89 - OTHER SPECIFIED ABNORMAL FINDINGS OF BLOOD CHEMISTRY (2) Fall Code(s): W19.XXXA - UNSPECIFIED FALL, INITIAL ENCOUNTER (3) Hyperglycemia Code(s): R73.9 - HYPERGLYCEMIA, UNSPECIFIED (4) Rhabdomyolysis Assessment/Plan: on ivf monitor cpk PT PULLING OUT IV REFUSING IVF DISCUSSED WITH DAUGHTER IN DETAIL THIS SITUATION Code(s): M62.82 - RHABDOMYOLYSIS (5) CAD (coronary artery disease) Code(s): I25.10 - ATHSCL HEART DISEASE OF [place] CORONARY ARTERY W/O ANG PCTRS (6) Dementia Code(s): F03.90 - UNSPECIFIED DEMENTIA WITHOUT BEHAVIORAL DISTURBANCE (7) Diabetes mellitus Code(s): E11.9 - TYPE 2 DIABETES MELLITUS WITHOUT COMPLICATIONS Qualifiers: Diabetes mellitus type: type 2 Diabetes mellitus mcfp insulin use: without mcfp use Diabetes mellitus complication status: without complication Qualified Code(s): E11.9 - Type 2 diabetes mellitus without complications (8) HTN (hypertension) Code(s): I10 - ESSENTIAL (PRIMARY) HYPERTENSION Qualifiers: Hypertension type: essential hypertension Qualified Code(s): I10 - Essential (primary) hypertension (9) Presence of cardiac pacemaker Code(s): Z95.0 - PRESENCE OF CARDIAC PACEMAKER (10) Metabolic encephalopathy Assessment/Plan: probably due to diabetes..d/d pt does have alzheimers dementia Code(s): G93.41 - METABOLIC ENCEPHALOPATHY
[2020-01-21] MEDS: ATORVASTATIN CA 80 MG TABLET (FP) PO SCH (21:55)
[2020-01-22] MEDS ORDERED: PT OWN MED DRAWER 7, Y5N ONE ×2 (05:53→09:32)
[2020-01-22] MEDS: REPAGLINIDE 0.5 MG TABLET (FP) PO SCH ×2 (06:33→17:04)
[2020-01-22] MEDS: INSULIN SLIDING SCALE (NOVOLOG) 1 VIAL SQ SCH ×4 (06:33→21:47)
[2020-01-22] MEDS: SODIUM CHLORIDE 1,000 ML IV SCH ×4 (07:15→21:47)
[2020-01-22] MEDS: ASPIRIN COATED 81 MG TABLET.EC PO SCH (09:45)
[2020-01-22] MEDS: HEPARIN NA (PORCINE) 5,000 UNITS/ML 1ML VIAL SQ SCH ×2 (09:45→21:46)
--- NOTE | 2020-01-22 13:56 | PN ---
Progress Note, Physician History of Present Illness: Patient is an 79 year old female with underlying history of CAD, [place], NIDDM, HTN, CKD, sick sinus syndrome s/p PPM, history of CHF and presence of CardioMEMS device who presented after falling to the floor getting out of the bed. She denies LOC. She denies chest pain, shortness of breath or palpitations. She denies fever or chills. She denies nausea, vomiting, diarrhea or abdominal pain. She denies headache or lightheadedness. She denies cough or expectorations. PCP: Dr. Petty, Cardiology: Dr. Gabino Parrish, ([facility]) - Current Medication List Current Medications: Active Medications Aspirin (Ecotrin -) 81 mg PO DAILY [facility] Last Admin: 01/22/20 09:45 Dose: 81 mg Documented by: Atorvastatin Calcium (Lipitor -) 80 mg PO HS [facility] Last Admin: 01/21/20 21:55 Dose: 80 mg Documented by: Heparin Sodium (Porcine) (Heparin -) 5,000 unit SQ BID [facility] Last Admin: 01/22/20 09:45 Dose: 5,000 unit Documented by: Sodium Chloride (Normal Saline -) 1,000 mls @ 75 mls/hr IV ASDIR [facility] Last Admin: 01/22/20 12:41 Dose: Not Given Documented by: Insulin Aspart (Novolog Vial Sliding Scale -) 1 vial SQ ACHS [facility]; Protocol Last Admin: 01/22/20 11:40 Dose: 8 units Documented by: Metoprolol Succinate (Toprol Xl -) 100 mg PO DAILY [facility] Last Admin: 01/22/20 09:45 Dose: 100 mg Documented by: Repaglinide (Prandin -) 1 mg PO BID@0700,1700 [facility] Last Admin: 01/22/20 06:33 Dose: 1 mg Documented by: - Objective Vital Signs: Vital Signs Temperature 97.6 F 01/22/20 10:00 Pulse Rate 88 01/22/20 10:00 Respiratory Rate 21 H 01/22/20 10:00 Blood Pressure 119/72 01/22/20 10:00 O2 Sat by Pulse Oximetry (%) 96 01/22/20 09:00 Eyes: Yes: WNL, Conjunctiva Clear, EOM Intact HENT: Yes: WNL, Atraumatic, Normocephalic Neck: Yes: WNL, Supple, Trachea Midline Cardiovascular: Yes: WNL, Regular Rate and Rhythm Respiratory: Yes: WNL, Regular, CTA Bilaterally Gastrointestinal: Yes: WNL, Normal Bowel Sounds Genitourinary: Yes: WNL Musculoskeletal: Yes: WNL Extremities: Yes: WNL Edema: No Integumentary: Yes: WNL Neurological: Yes: WNL, Alert, Oriented ...Motor Strength: WNL Psychiatric: Yes: WNL Labs: CBC, BMP 01/21/20 07:05 01/21/20 07:05 INR, PTT INR 0.92 (0.83-1.09) 01/17/20 13:30 Assessment/Plan 1. Fall with weakness, no LOC 2. HTN 3. CAD with history of LA, angina pectoris 4. DM with peripheral neuropathy 5. CHF s/p CardioMEMS device 6. Sick sinus syndrome s/p PPM 7. Acute on CKD improving 8. Toxic-Metabolic Encephalopathy due to hyperglycemia 9. Dementia 10. Hyperlipidemia PLAN: 1. Continue Metoprolol ER 100 mg QD and ASA 81 mg QD 2. Lipitor 80 qd 3. Monitor renal function and electrolytes. 4 D/c planning, eventual f/u with Dr. Desmond Parrish at [facility] dr. Colvin
--- NOTE | 2020-01-22 18:39 | PN ---
Progress Note (short form) - Note Progress Note: Covering Dr Luna Problems 1. WILTON 2. CKD 3. rhabdo 4. s/p fall 5. hld 6. cad 7. dementia Active Medications Aspirin (Ecotrin -) 81 mg PO DAILY [facility] Last Admin: 01/22/20 09:45 Dose: 81 mg Documented by: Atorvastatin Calcium (Lipitor -) 80 mg PO HS [facility] Last Admin: 01/21/20 21:55 Dose: 80 mg Documented by: Heparin Sodium (Porcine) (Heparin -) 5,000 unit SQ BID [facility] Last Admin: 01/22/20 09:45 Dose: 5,000 unit Documented by: Sodium Chloride (Normal Saline -) 1,000 mls @ 75 mls/hr IV ASDIR [facility] Last Admin: 01/22/20 17:05 Dose: 75 mls/hr Documented by: Insulin Aspart (Novolog Vial Sliding Scale -) 1 vial SQ ACHS [facility]; Protocol Last Admin: 01/22/20 16:45 Dose: Not Given Documented by: Metoprolol Succinate (Toprol Xl -) 100 mg PO DAILY [facility] Last Admin: 01/22/20 09:45 Dose: 100 mg Documented by: Repaglinide (Prandin -) 1 mg PO BID@0700,1700 [facility] Last Admin: 01/22/20 17:04 Dose: 1 mg Documented by: Last Vital Signs Temp Pulse Resp BP Pulse Ox 98.1 F 93 H 20 119/67 96 01/22/20 17:24 01/22/20 17:24 01/22/20 17:24 01/22/20 17:24 01/22/20 09:00 CBC, BMP 01/21/20 07:05 01/21/20 07:05 IMP- acute on Chronic Kidney disease Rhabdo Plan- continue hydration continue to hold statins
[2020-01-22] MEDS: ATORVASTATIN CA 80 MG TABLET (FP) PO SCH (21:47)
--- NOTE | 2020-01-22 22:05 | PN ---
Progress Note, Physician - Current Medication List Current Medications: Active Medications Aspirin (Ecotrin -) 81 mg PO DAILY [facility] Last Admin: 01/22/20 09:45 Dose: 81 mg Documented by: Atorvastatin Calcium (Lipitor -) 80 mg PO HS [facility] Last Admin: 01/22/20 21:47 Dose: 80 mg Documented by: Heparin Sodium (Porcine) (Heparin -) 5,000 unit SQ BID [facility] Last Admin: 01/22/20 21:46 Dose: 5,000 unit Documented by: Sodium Chloride (Normal Saline -) 1,000 mls @ 75 mls/hr IV ASDIR [facility] Last Admin: 01/22/20 21:47 Dose: Not Given Documented by: Insulin Aspart (Novolog Vial Sliding Scale -) 1 vial SQ ACHS [facility]; Protocol Last Admin: 01/22/20 21:47 Dose: 4 units Documented by: Metoprolol Succinate (Toprol Xl -) 100 mg PO DAILY [facility] Last Admin: 01/22/20 09:45 Dose: 100 mg Documented by: Repaglinide (Prandin -) 1 mg PO BID@0700,1700 [facility] Last Admin: 01/22/20 17:04 Dose: 1 mg Documented by: - Objective Vital Signs: Vital Signs Temperature 98.1 F 01/22/20 17:24 Pulse Rate 93 H 01/22/20 17:24 Respiratory Rate 20 01/22/20 17:24 Blood Pressure 119/67 01/22/20 17:24 O2 Sat by Pulse Oximetry (%) 96 01/22/20 09:00 Labs: CBC, BMP 01/21/20 07:05 01/21/20 07:05 INR, PTT INR 0.92 (0.83-1.09) 01/17/20 13:30 Problem List - Problems (1) Fall Code(s): W19.XXXA - UNSPECIFIED FALL, INITIAL ENCOUNTER (2) Elevated troponin Code(s): R79.89 - OTHER SPECIFIED ABNORMAL FINDINGS OF BLOOD CHEMISTRY (3) HTN (hypertension) Code(s): I10 - ESSENTIAL (PRIMARY) HYPERTENSION Qualifiers: Hypertension type: essential hypertension Qualified Code(s): I10 - Essential (primary) hypertension (4) Diabetes mellitus Code(s): E11.9 - TYPE 2 DIABETES MELLITUS WITHOUT COMPLICATIONS Qualifiers: Diabetes mellitus type: type 2 Diabetes mellitus chcf insulin use: without extermination inspector use Diabetes mellitus complication status: without complication Qualified Code(s): E11.9 - Type 2 diabetes mellitus without complications (5) CAD (coronary artery disease) Code(s): I25.10 - ATHSCL HEART DISEASE OF [place] CORONARY ARTERY W/O ANG PCTRS (6) Dementia Code(s): F03.90 - UNSPECIFIED DEMENTIA WITHOUT BEHAVIORAL DISTURBANCE
[2020-01-23] MEDS ORDERED: PT OWN MED DRAWER 7, Y5N ONE ×2 (05:55→09:06)
[2020-01-23] MEDS: INSULIN SLIDING SCALE (NOVOLOG) 1 VIAL SQ SCH ×4 (06:24→21:16)
[2020-01-23] MEDS: REPAGLINIDE 0.5 MG TABLET (FP) PO SCH ×2 (06:25→17:25)
[2020-01-23] MEDS: ACETAMINOPHEN 325 MG TABLET (FP) PO PRN ×2 (06:52→13:21)
[2020-01-23] MEDS: ASPIRIN COATED 81 MG TABLET.EC PO SCH (09:17)
[2020-01-23] MEDS: HEPARIN NA (PORCINE) 5,000 UNITS/ML 1ML VIAL SQ SCH ×2 (09:17→21:10)
--- NOTE | 2020-01-23 09:58 | PN ---
Progress Note, Physician History of Present Illness: Patient is an 79 year old female with underlying history of CAD, [place], NIDDM, HTN, CKD, sick sinus syndrome s/p PPM, history of CHF and presence of CardioMEMS device who presented after falling to the floor getting out of the bed. She denies LOC. She denies chest pain, shortness of breath or palpitations. She denies fever or chills. She denies nausea, vomiting, diarrhea or abdominal pain. She denies headache or lightheadedness. She denies cough or expectorations. PCP: Dr. Petty, Cardiology: Dr. Gabino Parrish, ([facility]) - Current Medication List Current Medications: Active Medications Acetaminophen (Tylenol -) 650 mg PO Q6H PRN PRN Reason: PAIN LEVEL 4 - 6 Last Admin: 01/23/20 06:52 Dose: 650 mg Documented by: Aspirin (Ecotrin -) 81 mg PO DAILY [facility] Last Admin: 01/23/20 09:17 Dose: 81 mg Documented by: Atorvastatin Calcium (Lipitor -) 80 mg PO HS [facility] Last Admin: 01/22/20 21:47 Dose: 80 mg Documented by: Heparin Sodium (Porcine) (Heparin -) 5,000 unit SQ BID [facility] Last Admin: 01/23/20 09:17 Dose: 5,000 unit Documented by: Sodium Chloride (Normal Saline -) 1,000 mls @ 75 mls/hr IV ASDIR [facility] Last Admin: 01/22/20 21:47 Dose: Not Given Documented by: Insulin Aspart (Novolog Vial Sliding Scale -) 1 vial SQ [facility]; Protocol Last Admin: 01/23/20 06:24 Dose: 2 units Documented by: Metoprolol Succinate (Toprol Xl -) 100 mg PO DAILY [facility] Last Admin: 01/23/20 09:17 Dose: 100 mg Documented by: Repaglinide (Prandin -) 1 mg PO BID@0700,1700 [facility] Last Admin: 01/23/20 06:25 Dose: 1 mg Documented by: - Objective Vital Signs: Vital Signs Temperature 98.4 F 01/23/20 05:00 Pulse Rate 101 H 01/23/20 05:00 Respiratory Rate 20 01/23/20 05:00 Blood Pressure 142/88 01/23/20 05:00 O2 Sat by Pulse Oximetry (%) 96 01/22/20 21:00 Eyes: Yes: WNL, Conjunctiva Clear, EOM Intact HENT: Yes: WNL, Atraumatic, Normocephalic Neck: Yes: WNL, Supple, Trachea Midline Cardiovascular: Yes: WNL, Regular Rate and Rhythm Respiratory: Yes: WNL, Regular, CTA Bilaterally Gastrointestinal: Yes: WNL, Normal Bowel Sounds Genitourinary: Yes: WNL Musculoskeletal: Yes: WNL Extremities: Yes: WNL Edema: No Integumentary: Yes: WNL Neurological: Yes: WNL, Alert, Oriented ...Motor Strength: WNL Psychiatric: Yes: WNL Labs: CBC, BMP 01/21/20 07:05 01/21/20 07:05 INR, PTT INR 0.92 (0.83-1.09) 01/17/20 13:30 Assessment/Plan 1. Fall with weakness, no LOC 2. HTN 3. CAD with history of [place], angina pectoris 4. DM with peripheral neuropathy 5. CHF s/p CardioMEMS device 6. Sick sinus syndrome s/p PPM 7. Acute on CKD improving 8. Toxic-Metabolic Encephalopathy due to hyperglycemia 9. Dementia 10. Hyperlipidemia PLAN: 1. Continue Metoprolol ER 100 mg QD and ASA 81 mg QD 2. Lipitor 80 qd 3. Monitor renal function and electrolytes. 4 D/c planning, eventual f/u with Dr. Desmond Parrish at [facility] dr. Colvin
--- NOTE | 2020-01-23 15:45 | CONSULT ---
Consult Consult Specialty:: Endocrinology Referred by:: Dr Carrera Reason for Consultation:: Hyperglycemia - History of Present Illness Chief Complaint: Fall, Hyperglycemia History of Present Illness: This is an 79 year old female with h/o T2DM, alzheimers dementia, Pancreatitis in 2010 who presents to ED for evaluation s/p fall. Pt reports she was walking in her home when she tripped on the threshold and landed on her buttocks. Denies head strike or back pain. The patient denied chest pain, shortness of breath, headache and dizziness. Denies fever, chills, nausea, vomiting, diarrhea and constipation. Denies dysuria, frequency, urgency and hematuria. 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 Daughter is concerned that she is not safe alone and needs a home health aide. Per EMS, the pt's glucose was >500. Pt denies taking medications on a daily basis but daughter states she should be taking metformin. In the ED Blood glucose was 542 and Cr 3.2. Pt was treated with IV hydration and Insulin with improvement of blood sugar. Pt currenlty awake, alert. Oriented to place, person but not to year. Denies any complaints now. Case discussed with Dr Carrera, started on Prandin. - History Source History Provided By: Patient, Medical Record Limitations to Obtaining History: Dementia - Past Medical History RN ANTE PARTUM: Yes: Alzheimer's Cardio/Vascular: Yes: CAD, CHF, HTN, Other (Pacemaker, CardioMEMS device) Renal/: Yes: Renal Inusuff Endocrine: Yes: Diabetes Mellitus - Past Surgical History Past Surgical History: Yes: Permanent Pacemaker Additional Surgical History: CardioMEMS device - Alcohol/Substance Use Hx Alcohol Use: No - Smoking History Smoking history: Never smoked Have you smoked in the past 12 months: No Home Medications - Allergies Allergies/Adverse Reactions: Allergies Allergy/AdvReac Type Severity Reaction Status Date / Time No Known Allergies Allergy Verified 01/17/20 14:26 - Home Medications Home Medications: Ambulatory Orders Aspirin [Aspirin EC] 81 mg PO DAILY 01/17/20 Atorvastatin Ca [Lipitor] 80 mg PO HS 01/17/20 Furosemide 60 mg PO BID 01/17/20 Isosorbibe Dinit/Hydralazine [Bidil Tablet] 20 - 37.5 mg PO TID 01/17/20 Metoprolol Succinate 100 mg PO DAILY 01/17/20 Nitroglycerin 0.3 mg SL PRN 01/17/20 Review of Systems - Review of Systems Constitutional: reports: No Symptoms Eyes: reports: No Symptoms HENT: reports: No Symptoms Neck: reports: No Symptoms Cardiovascular: reports: No Symptoms Respiratory: reports: No Symptoms Gastrointestinal: reports: No Symptoms Genitourinary: reports: No Symptoms Neurological: reports: No Symptoms Endocrine: reports: No Symptoms Hematology/Lymphatic: reports: No Symptoms Physical Exam Vital Signs: Vital Signs Temperature 97.6 F 01/23/20 14:00 Pulse Rate 102 H 01/23/20 14:00 Respiratory Rate 23 H 01/23/20 09:00 Blood Pressure 139/92 01/23/20 14:00 O2 Sat by Pulse Oximetry (%) 93 L 01/23/20 09:00 Constitutional: Yes: No Distress, Calm Eyes: Yes: Conjunctiva Clear, EOM Intact HENT: Yes: Atraumatic, Normocephalic Neck: Yes: Supple, Trachea Midline Cardiovascular: Yes: Regular Rate and Rhythm Respiratory: Yes: Regular, CTA Bilaterally Gastrointestinal: Yes: Normal Bowel Sounds, Soft Extremities: Yes: WNL, Other (+ Calluses b/l feet) Edema: No Neurological: Yes: Alert, Other (Oriented to person and place but not year) Labs: CBC, BMP 01/21/20 07:05 01/21/20 07:05 Assessment/Plan AP: S/P Fall with weakness, no LOC T2DM with hyperglycmeia probably sec to nonadherence to medication regimen HTN CAD with history of PR, angina pectoris CHF s/p CardioMEMS device Sick sinus syndrome s/p PPM Acute on CKD improving Dementia Hyperlipidemia Elevateed CK/Rhabdomyolysis H/O Pancreatitis in 2010 with Lipase of 1188 on 08.26.11 BGM QACHS Novolog Coverage when FS >200 Increase Prandin 1mg TIDAC, dose may be further increased a appropriate No DPP4 or GLP1 b/o h/o pancreatitis. No Metformin/SGLT2 for now b/o renal insufficiency Consider holding Statin until CK normalizes if ok with Cardiology
--- NOTE | 2020-01-23 20:06 | PN ---
Progress Note (short form) - Note Progress Note: Covering Dr Luna Problems 1. WILTON 2. CKD 3. rhabdo 4. s/p fall 5. hld 6. cad 7. dementia Active Medications Acetaminophen (Tylenol -) 650 mg PO Q6H PRN PRN Reason: PAIN LEVEL 4 - 6 Last Admin: 01/23/20 13:21 Dose: 650 mg Documented by: Aspirin (Ecotrin -) 81 mg PO DAILY [facility] Last Admin: 01/23/20 09:17 Dose: 81 mg Documented by: Atorvastatin Calcium (Lipitor -) 80 mg PO HS [facility] Last Admin: 01/22/20 21:47 Dose: 80 mg Documented by: Heparin Sodium (Porcine) (Heparin -) 5,000 unit SQ BID [facility] Last Admin: 01/23/20 09:17 Dose: 5,000 unit Documented by: Sodium Chloride (Normal Saline -) 1,000 mls @ 75 mls/hr IV ASDIR [facility] Last Admin: 01/22/20 21:47 Dose: Not Given Documented by: Insulin Aspart (Novolog Vial Sliding Scale -) 1 vial SQ ACHS [facility]; Protocol Metoprolol Succinate (Toprol Xl -) 100 mg PO DAILY [facility] Last Admin: 01/23/20 09:17 Dose: 100 mg Documented by: Repaglinide (Prandin -) 1 mg PO TIDAC [facility] Last Vital Signs Temp Pulse Resp BP Pulse Ox 97.6 F 102 H 23 H 139/92 93 L 01/23/20 14:00 01/23/20 14:00 01/23/20 09:00 01/23/20 14:00 01/23/20 09:00 CBC, BMP 01/21/20 07:05 01/21/20 07:05 IMP- acute on Chronic Kidney disease Rhabdo Plan- continue hydration continue to hold statins follow labs in am
--- NOTE | 2020-01-23 20:13 | PN ---
Progress Note, Physician - Current Medication List Current Medications: Active Medications Acetaminophen (Tylenol -) 650 mg PO Q6H PRN PRN Reason: PAIN LEVEL 4 - 6 Last Admin: 01/23/20 13:21 Dose: 650 mg Documented by: Aspirin (Ecotrin -) 81 mg PO DAILY [facility] Last Admin: 01/23/20 09:17 Dose: 81 mg Documented by: Atorvastatin Calcium (Lipitor -) 80 mg PO HS [facility] Last Admin: 01/22/20 21:47 Dose: 80 mg Documented by: Heparin Sodium (Porcine) (Heparin -) 5,000 unit SQ BID [facility] Last Admin: 01/23/20 09:17 Dose: 5,000 unit Documented by: Sodium Chloride (Normal Saline -) 1,000 mls @ 75 mls/hr IV ASDIR [facility] Last Admin: 01/22/20 21:47 Dose: Not Given Documented by: Insulin Aspart (Novolog Vial Sliding Scale -) 1 vial SQ ACHS [facility]; Protocol Metoprolol Succinate (Toprol Xl -) 100 mg PO DAILY [facility] Last Admin: 01/23/20 09:17 Dose: 100 mg Documented by: Repaglinide (Prandin -) 1 mg PO TIDAC [facility] - Objective Vital Signs: Vital Signs Temperature 97.6 F 01/23/20 14:00 Pulse Rate 102 H 01/23/20 14:00 Respiratory Rate 23 H 01/23/20 09:00 Blood Pressure 139/92 01/23/20 14:00 O2 Sat by Pulse Oximetry (%) 93 L 01/23/20 09:00 Labs: CBC, BMP 01/21/20 07:05 01/21/20 07:05 INR, PTT INR 0.92 (0.83-1.09) 01/17/20 13:30 Problem List - Problems (1) Fall Code(s): W19.XXXA - UNSPECIFIED FALL, INITIAL ENCOUNTER (2) Elevated troponin Code(s): R79.89 - OTHER SPECIFIED ABNORMAL FINDINGS OF BLOOD CHEMISTRY (3) HTN (hypertension) Code(s): I10 - ESSENTIAL (PRIMARY) HYPERTENSION Qualifiers: Hypertension type: essential hypertension Qualified Code(s): I10 - Essential (primary) hypertension (4) Diabetes mellitus Code(s): E11.9 - TYPE 2 DIABETES MELLITUS WITHOUT COMPLICATIONS Qualifiers: Diabetes mellitus type: type 2 Diabetes mellitus intermediate 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
[2020-01-23] MEDS: ATORVASTATIN CA 80 MG TABLET (FP) PO SCH (21:10)
[2020-01-23] MEDS: SODIUM CHLORIDE 1,000 ML IV SCH (21:34)
[2020-01-24] MEDS ORDERED: PT OWN MED DRAWER 7, Y5N ONE ×2 (05:30→05:32)
[2020-01-24] MEDS: INSULIN SLIDING SCALE (NOVOLOG) 1 VIAL SQ SCH ×4 (06:01→22:00)
[2020-01-24] MEDS: REPAGLINIDE 0.5 MG TABLET (FP) PO SCH ×3 (06:02→17:11)
[2020-01-24 07:42] LABS: ALBUMIN 2.8 g/dl (3.4-5.0); BILIRUBIN,TOTAL 0.9 mg/dL (0.2-1); BLOOD UREA NITROGEN 37.9 mg/dL (7-18); CALCIUM 8.7 mg/dL (8.5-10.1); POTASSIUM 4.7 mmol/L (3.5-5.1); TOT PROT 5.3 g/dl (6.4-8.2)
--- NOTE | 2020-01-24 09:38 | PN ---
Progress Note, Physician History of Present Illness: Patient is an 79 year old female with underlying history of CAD, [place], NIDDM, HTN, CKD, sick sinus syndrome s/p PPM, history of CHF and presence of CardioMEMS device who presented after falling to the floor getting out of the bed. She denies LOC. She denies chest pain, shortness of breath or palpitations. She denies fever or chills. She denies nausea, vomiting, diarrhea or abdominal pain. She denies headache or lightheadedness. She denies cough or expectorations. PCP: Dr. Petty, Cardiology: Dr. Gabino Parrish, ([facility]) - Current Medication List Current Medications: Active Medications Acetaminophen (Tylenol -) 650 mg PO Q6H PRN PRN Reason: PAIN LEVEL 4 - 6 Last Admin: 01/23/20 13:21 Dose: 650 mg Documented by: Aspirin (Ecotrin -) 81 mg PO DAILY [facility] Last Admin: 01/23/20 09:17 Dose: 81 mg Documented by: Atorvastatin Calcium (Lipitor -) 80 mg PO HS [facility] Last Admin: 01/23/20 21:10 Dose: 80 mg Documented by: Heparin Sodium (Porcine) (Heparin -) 5,000 unit SQ BID [facility] Last Admin: 01/23/20 21:10 Dose: 5,000 unit Documented by: Sodium Chloride (Normal Saline -) 1,000 mls @ 75 mls/hr IV ASDIR [facility] Last Admin: 01/23/20 21:34 Dose: Not Given Documented by: Insulin Aspart (Novolog Vial Sliding Scale -) 1 vial SQ [facility]; Protocol Last Admin: 01/24/20 06:01 Dose: Not Given Documented by: Metoprolol Succinate (Toprol Xl -) 100 mg PO DAILY [facility] Last Admin: 01/23/20 09:17 Dose: 100 mg Documented by: Repaglinide (Prandin -) 1 mg PO TIDAC [facility] Last Admin: 01/24/20 06:02 Dose: 1 mg Documented by: - Objective Vital Signs: Vital Signs Temperature 97.4 F L 01/24/20 05:18 Pulse Rate 94 H 01/24/20 05:18 Respiratory Rate 20 01/24/20 05:18 Blood Pressure 130/78 01/24/20 05:18 O2 Sat by Pulse Oximetry (%) 96 01/23/20 21:00 Eyes: Yes: WNL, Conjunctiva Clear, EOM Intact HENT: Yes: WNL, Atraumatic, Normocephalic Neck: Yes: WNL, Supple, Trachea Midline Cardiovascular: Yes: WNL, Regular Rate and Rhythm Respiratory: Yes: WNL, Regular, CTA Bilaterally Gastrointestinal: Yes: WNL, Normal Bowel Sounds Genitourinary: Yes: WNL Musculoskeletal: Yes: WNL Extremities: Yes: WNL Edema: No Integumentary: Yes: WNL Neurological: Yes: WNL, Alert, Oriented ...Motor Strength: WNL Psychiatric: Yes: WNL Labs: CBC, BMP 01/21/20 07:05 01/24/20 06:10 INR, PTT INR 0.92 (0.83-1.09) 01/17/20 13:30 Assessment/Plan 1. Fall with weakness, no LOC 2. HTN 3. CAD with history of [place], angina pectoris 4. DM with peripheral neuropathy 5. CHF s/p CardioMEMS device 6. Sick sinus syndrome s/p PPM 7. Acute on CKD improving 8. Toxic-Metabolic Encephalopathy due to hyperglycemia 9. Dementia 10. Hyperlipidemia PLAN: 1. Continue Metoprolol ER 100 mg QD and ASA 81 mg QD 2. Lipitor 80 qd 3. Monitor renal function and electrolytes. 4 TNIs increased to 0.61 5. Will order EKG and ECHO Coverage dr. Colvin
[2020-01-24] MEDS: ASPIRIN COATED 81 MG TABLET.EC PO SCH (09:54)
[2020-01-24] MEDS: HEPARIN NA (PORCINE) 5,000 UNITS/ML 1ML VIAL SQ SCH (09:54)
--- NOTE | 2020-01-24 13:24 | PN ---
Progress Note, Physician History of Present Illness: Pt seen and examined at bedside. She is awake but confused. - Current Medication List Current Medications: Active Medications Acetaminophen (Tylenol -) 650 mg PO Q6H PRN PRN Reason: PAIN LEVEL 4 - 6 Last Admin: 01/23/20 13:21 Dose: 650 mg Documented by: Aspirin (Ecotrin -) 81 mg PO DAILY [facility] Last Admin: 01/24/20 09:54 Dose: 81 mg Documented by: Atorvastatin Calcium (Lipitor -) 80 mg PO HS [facility] Last Admin: 01/23/20 21:10 Dose: 80 mg Documented by: Heparin Sodium (Porcine) (Heparin -) 5,000 unit SQ BID [facility] Last Admin: 01/24/20 09:54 Dose: 5,000 unit Documented by: Sodium Chloride (Normal Saline -) 1,000 mls @ 75 mls/hr IV ASDIR [facility] Last Admin: 01/23/20 21:34 Dose: Not Given Documented by: Insulin Aspart (Novolog Vial Sliding Scale -) 1 vial SQ ACHS [facility]; Protocol Last Admin: 01/24/20 11:50 Dose: Not Given Documented by: Metoprolol Succinate (Toprol Xl -) 100 mg PO DAILY [facility] Last Admin: 01/24/20 09:54 Dose: 100 mg Documented by: Repaglinide (Prandin -) 1 mg PO TIDAC [facility] Last Admin: 01/24/20 11:51 Dose: 1 mg Documented by: - Objective Vital Signs: Vital Signs Temperature 97.7 F 01/24/20 10:00 Pulse Rate 91 H 01/24/20 10:00 Respiratory Rate 18 01/24/20 10:00 Blood Pressure 130/81 01/24/20 10:00 O2 Sat by Pulse Oximetry (%) 97 01/24/20 09:00 Constitutional: Yes: Calm Eyes: Yes: Conjunctiva Clear HENT: Yes: Atraumatic Neck: Yes: Supple Cardiovascular: Yes: S1, S2 Respiratory: Yes: CTA Bilaterally Gastrointestinal: Yes: Soft Genitourinary: Yes: Incontinence Musculoskeletal: Yes: WNL Extremities: Yes: Amputation Neurological: Yes: Confusion Labs: CBC, BMP 01/21/20 07:05 01/24/20 06:10 INR, PTT INR 0.92 (0.83-1.09) 01/17/20 13:30 Problem List - Problems (1) CAD (coronary artery disease) Code(s): I25.10 - ATHSCL HEART DISEASE OF [place] CORONARY ARTERY W/O ANG PCTRS (2) Rhabdomyolysis Code(s): M62.82 - RHABDOMYOLYSIS Assessment/Plan Current Medications Generic Name Dose Route Start Last Admin Trade Name Freq PRN Reason Stop Dose Admin Acetaminophen 650 mg 01/23/20 06:45 01/23/20 13:21 Tylenol - PO 650 mg Q6H PRN Administration PAIN LEVEL 4 - 6 Aspirin 81 mg 01/18/20 10:00 01/24/20 09:54 Ecotrin - PO 81 mg DAILY [facility] Administration Atorvastatin Calcium 80 mg 01/17/20 22:00 01/23/20 21:10 Lipitor - PO 80 mg HS [facility] Administration Heparin Sodium (Porcine) 5,000 unit 01/17/20 22:00 01/24/20 09:54 Heparin - SQ 5,000 unit BID [facility] Administration Sodium Chloride 1,000 mls @ 75 mls/hr 01/17/20 19:45 01/23/20 21:34 Normal Saline - IV Not Given ASDIR [facility]ST[facility] Insulin Aspart 1 vial 01/23/20 22:00 01/24/20 11:50 Novolog Vial Sliding Scale - SQ Not Given ACHS [facility] Protocol Metoprolol Succinate 100 mg 01/18/20 10:00 01/24/20 09:54 Toprol Xl - PO 100 mg DAILY [facility] Administration Repaglinide 1 mg 01/24/20 07:00 01/24/20 11:51 Prandin - PO 1 mg TIDAC [facility] Administration Impression 1. WILTON 2. CKD 3. rhabdo 4. s/p fall 5. hld 6. cad 7. dementia Plan - will change fluids to 1/2 ns - statin on hold for now - cpk is improving - cardio follow up, statin is held - can give lasix if she develops overload - renal function improving - repeat labs in am
[2020-01-24] MEDS: SODIUM CHLORIDE 0.45% 1,000 ML IV SCH (14:39)
--- NOTE | 2020-01-24 17:08 | EKG ---
Test Reason : Blood Pressure : / mmHG Vent. Rate : 102 BPM Atrial Rate : 102 BPM P-R Int : 184 ms QRS Dur : 112 ms QT Int : 438 ms P-R-T Axes : 052 -62 070 degrees QTc Int : 570 ms Atrial-sensed ventricular-paced rhythm ABNORMAL ECG WHEN COMPARED WITH ECG OF 23-JAN-2020 13:43, VENT. RATE HAS DECREASED BY 6 BPM Confirmed by SOFIA BURTON MD ([id number]) on 01/24/2020 5:08:24 PM Referred By: Elli RIOS Confirmed By:SOFIA BURTON MD
--- NOTE | 2020-01-24 17:13 | EKG ---
Test Reason : Blood Pressure : / mmHG Vent. Rate : 108 BPM Atrial Rate : 108 BPM P-R Int : 162 ms QRS Dur : 106 ms QT Int : 374 ms P-R-T Axes : 051 -63 040 degrees QTc Int : 501 ms Atrial-sensed ventricular-paced rhythm WITH FUSION COMPLEXES ABNORMAL ECG WHEN COMPARED WITH ECG OF 17-JAN-2020 15:16, VENT. RATE HAS INCREASED BY 22 BPM Confirmed by SOFIA BURTON MD ([id number]) on 01/24/2020 5:13:22 PM Referred By: Elli RIOS Confirmed By:SOFIA BURTON MD
--- NOTE | 2020-01-24 21:28 | PN ---
Progress Note, Physician - Current Medication List Current Medications: Active Medications Acetaminophen (Tylenol -) 650 mg PO Q6H PRN PRN Reason: PAIN LEVEL 4 - 6 Last Admin: 01/23/20 13:21 Dose: 650 mg Documented by: Aspirin (Ecotrin -) 81 mg PO DAILY [facility] Last Admin: 01/24/20 09:54 Dose: 81 mg Documented by: Atorvastatin Calcium (Lipitor -) 80 mg PO HS [facility] Last Admin: 01/23/20 21:10 Dose: 80 mg Documented by: Heparin Sodium (Porcine) (Heparin -) 5,000 unit SQ BID [facility] Last Admin: 01/24/20 09:54 Dose: 5,000 unit Documented by: Sodium Chloride (1/2 Normal Saline) 1,000 mls @ 75 mls/hr IV ASDIR [facility] Last Admin: 01/24/20 14:39 Dose: 75 mls/hr Documented by: Insulin Aspart (Novolog Vial Sliding Scale -) 1 vial SQ ACHS [facility]; Protocol Last Admin: 01/24/20 17:13 Dose: 4 units Documented by: Metoprolol Succinate (Toprol Xl -) 100 mg PO DAILY [facility] Last Admin: 01/24/20 09:54 Dose: 100 mg Documented by: Repaglinide (Prandin -) 1 mg PO TIDAC [facility] Last Admin: 01/24/20 17:11 Dose: 1 mg Documented by: - Objective Vital Signs: Vital Signs Temperature 98.2 F 01/24/20 17:00 Pulse Rate 99 H 01/24/20 17:00 Respiratory Rate 20 01/24/20 17:00 Blood Pressure 130/77 01/24/20 17:00 O2 Sat by Pulse Oximetry (%) 97 01/24/20 09:00 Labs: CBC, BMP 01/21/20 07:05 01/24/20 06:10 INR, PTT INR 0.92 (0.83-1.09) 01/17/20 13:30 Problem List - Problems (1) Fall Code(s): W19.XXXA - UNSPECIFIED FALL, INITIAL ENCOUNTER (2) Elevated troponin Code(s): R79.89 - OTHER SPECIFIED ABNORMAL FINDINGS OF BLOOD CHEMISTRY (3) HTN (hypertension) Code(s): I10 - ESSENTIAL (PRIMARY) HYPERTENSION Qualifiers: Hypertension type: essential hypertension Qualified Code(s): I10 - Essential (primary) hypertension (4) Diabetes mellitus Code(s): E11.9 - TYPE 2 DIABETES MELLITUS WITHOUT COMPLICATIONS Qualifiers: Diabetes mellitus type: type 2 Diabetes mellitus intermediate frame tender insulin use: without intermediate frame tender use Diabetes mellitus complication status: without complication Qualified Code(s): E11.9 - Type 2 diabetes mellitus without complications (5) CAD (coronary artery disease) Code(s): I25.10 - ATHSCL HEART DISEASE OF [place] CORONARY ARTERY W/O ANG PCTRS (6) Dementia Code(s): F03.90 - UNSPECIFIED DEMENTIA WITHOUT BEHAVIORAL DISTURBANCE
[2020-01-24] MEDS: ACETAMINOPHEN 325 MG TABLET (FP) PO PRN (22:02)
[2020-01-24] MEDS: ATORVASTATIN CA 80 MG TABLET (FP) PO SCH (22:03)
[2020-01-24 22:58] VITALS: BMI 27.9
[2020-01-25] MEDS: REPAGLINIDE 0.5 MG TABLET (FP) PO SCH ×3 (06:31→16:51)
[2020-01-25] MEDS: INSULIN SLIDING SCALE (NOVOLOG) 1 VIAL SQ SCH ×4 (06:31→21:53)
[2020-01-25 08:04] LABS: BASO % 0.5 % (0-2.0); EOS % 0.8 % (0-4.5); HEMATOCRIT 24.4 % (32.4-45.2); HEMOGLOBIN 8.2 GM/dL (10.7-15.3); LYMPH % 19.2 % (8-40); MCH 29.5 pg (25.7-33.7); MCHC 33.4 g/dl (32.0-36.0); MEAN CELL VOLUME 88.1 fl (80-96); MEAN PLT VOLUME 10.3 fl (7.5-11.1); NEUT % 66.5 % (42.8-82.8); PLATELET COUNT 177 K/MM3 (134-434); RBC 2.77 M/mm3 (3.60-5.2); RDW 19.8 % (11.6-15.6); WHITE BLOOD COUNT 6.1 K/mm3 (4.0-10.0)
[2020-01-25 08:19] LABS: ALBUMIN 2.8 g/dl (3.4-5.0); BILIRUBIN,TOTAL 0.8 mg/dL (0.2-1); BLOOD UREA NITROGEN 39.4 mg/dL (7-18); CALCIUM 8.7 mg/dL (8.5-10.1); CREATININE 2.3 mg/dL (0.55-1.3); POTASSIUM 4.5 mmol/L (3.5-5.1); TOT PROT 5.3 g/dl (6.4-8.2)
--- NOTE | 2020-01-25 11:30 | EKG ---
Test Reason : Blood Pressure : / mmHG Vent. Rate : 094 BPM Atrial Rate : 094 BPM P-R Int : 136 ms QRS Dur : 128 ms QT Int : 414 ms P-R-T Axes : 056 -55 157 degrees QTc Int : 517 ms SINUS RHYTHM WITH MARKED SINUS ARRHYTHMIA WITH FREQUENT ventricular-paced complexes LEFT AXIS DEVIATION NON-SPECIFIC INTRA-VENTRICULAR CONDUCTION BLOCK INFERIOR INFARCT , AGE UNDETERMINED CANNOT RULE OUT ANTEROSEPTAL INFARCT , AGE UNDETERMINED ABNORMAL ECG WHEN COMPARED WITH ECG OF 24-JAN-2020 11:51, VENT. RATE HAS DECREASED BY 8 BPM Confirmed by Shahriar Pope MD ([id number]) on 01/25/2020 11:29:48 AM Referred By: VERN VILLA Confirmed By:Shahriar Pope MD
--- NOTE | 2020-01-25 12:27 | PN ---
Progress Note, Physician Chief Complaint: Events noted Complains of mid sternal pressure History of Present Illness: Patient was seen and examined. Awake and alert. Chart was reviewed Denies shortness of breath or palpitations As outlined - Current Medication List Current Medications: Active Medications Acetaminophen (Tylenol -) 650 mg PO Q6H PRN PRN Reason: PAIN LEVEL 4 - 6 Last Admin: 01/24/20 22:02 Dose: 650 mg Documented by: Aspirin (Ecotrin -) 81 mg PO DAILY [facility] Last Admin: 01/24/20 09:54 Dose: 81 mg Documented by: Atorvastatin Calcium (Lipitor -) 80 mg PO HS [facility] Last Admin: 01/24/20 22:03 Dose: 80 mg Documented by: Sodium Chloride (1/2 Normal Saline) 1,000 mls @ 75 mls/hr IV ASDIR [facility] Last Admin: 01/24/20 14:39 Dose: 75 mls/hr Documented by: Insulin Aspart (Novolog Vial Sliding Scale -) 1 vial SQ [facility]; Protocol Last Admin: 01/25/20 06:31 Dose: Not Given Documented by: Metoprolol Succinate (Toprol Xl -) 100 mg PO DAILY [facility] Last Admin: 01/24/20 09:54 Dose: 100 mg Documented by: Repaglinide (Prandin -) 1 mg PO TIDAC [facility] Last Admin: 01/25/20 06:31 Dose: 1 mg Documented by: - Objective Vital Signs: Vital Signs Temperature 97.9 F 01/25/20 09:00 Pulse Rate 95 H 01/25/20 09:00 Respiratory Rate 18 01/25/20 09:00 Blood Pressure 127/76 01/25/20 09:00 O2 Sat by Pulse Oximetry (%) 98 01/25/20 09:00 Neck: Yes: Supple Cardiovascular: Yes: Regular Rate and Rhythm, S1, S2. No: Murmur Respiratory: Yes: Diminished Gastrointestinal: Yes: Normal Bowel Sounds, Soft. No: Tenderness Edema: No Additional Findings/Remarks: - Review of Systems Constitutional: denies: Chills, Fever Cardiovascular: denies: Chest Pain, Palpitations, Shortness of Breath Respiratory: denies: Cough, Hemoptysis, Orthopnea, PND, SOB, SOB on Exertion Gastrointestinal: denies: Abdominal Pain, Constipation, Diarrhea, Melena, Nausea, Rectal Bleeding, Vomiting Genitourinary: denies: Dysuria, Hematuria Musculoskeletal: denies: Joint Pain Neurological: denies: Dizziness, Headache, Seizure, Syncope Labs: CBC, BMP 01/25/20 07:00 01/25/20 07:00 Problem List - Problems (1) CAD (coronary artery disease) Code(s): I25.10 - ATHSCL HEART DISEASE OF [place] CORONARY ARTERY W/O ANG PCTRS (2) Diabetes mellitus Code(s): E11.9 - TYPE 2 DIABETES MELLITUS WITHOUT COMPLICATIONS Qualifiers: Diabetes mellitus type: type 2 Diabetes mellitus skilled nursing insulin use: wi thout skilled nursing use Diabetes mellitus complication status: without compli cation Qualified Code(s): E11.9 - Type 2 diabetes mellitus without compli cations (3) HTN (hypertension) Code(s): I10 - ESSENTIAL (PRIMARY) HYPERTENSION Qualifiers: Hypertension type: essential hypertension Qualified Code(s): I10 - Essential (primary) hypertension (4) Presence of cardiac pacemaker Code(s): Z95.0 - PRESENCE OF CARDIAC PACEMAKER (5) Elevated troponin Code(s): R79.89 - OTHER SPECIFIED ABNORMAL FINDINGS OF BLOOD CHEMISTRY (6) Fall Code(s): W19.XXXA - UNSPECIFIED FALL, INITIAL ENCOUNTER Assessment/Plan 1. Fall with weakness, no LOC 2. HTN 3. CAD with history of ID, angina pectoris, demand ischemia 4. DM 5. History of CHF s/p CardioMEMS device 6. Sick sinus syndrome s/p PPM 7. CKD 8. Hypercholesterolemia 9. Toxic metabolic encephalopathy and underlying dementia PLAN: 1. Continue Metoprolol ER 100 mg QD. Lipitor 80 mg QD and ASA 81 mg QD 2. DVT prophylaxis 3. Monitor renal function and electrolytes. K supplement 4. Troponin downtrending 5. Echocardiography to assess LV/RV and valvular function Further plans are to follow Stefan Colvin MD
[2020-01-25] MEDS: SODIUM CHLORIDE 0.45% 1,000 ML IV SCH (12:35)
[2020-01-25] MEDS: ASPIRIN COATED 81 MG TABLET.EC PO SCH (12:35)
--- NOTE | 2020-01-25 13:29 | ECHO ---
Version: 1 Name: SALLIE RENO Exam: Adult Echocardiogram Study Date: 01/25/2020, 11:11 AM Age: 79 Years MMode/2D Measurements & Calculations IVSd: 1.06 cm LVIDs: 4.9 cm LVIDd: 5.3 cm LVPWd: 1.21 cm LAV (MOD-bp): 67.0 ml LVOT diam: 1.79 cm Ao root diam: 2.32 cm LA dimension: 3.1 cm Doppler Measurements & Calculations MV mean P.3 mmHg MV V2 max: 138.2 cm/sec MV max P.6 mmHg Med Peak E' Carlos Alberto: 5.4 cm/sec MR max P.3 mmHg Ao max P.1 mmHg Ao V2 max: 112.9 cm/sec TR max carlos alberto: 243.2 cm/sec TR max P.2 mmHg Procedure A complete two-dimensional transthoracic echocardiogram was performed (2D, M-mode, Doppler and color flow Doppler). The patient was in normal sinus rhythm during the exam. Left Ventricle The left ventricle is normal in size. Left ventricular systolic function is severely reduced. Ejecti on Fraction = 25%. The transmitral spectral Doppler flow pattern is suggestive of restrictive physiolog y. There is severe global hypokinesis of the left ventricle. Septal motion is consistent with conduction abno rmality. There is no thrombus. Right Ventricle The right ventricle is normal in size and function. There is a pacemaker lead in the right ventricle . Atria Normal left and right atrial size and function. Mitral Valve There is mild mitral annular calcification. There is mild mitral regurgitation. Tricuspid Valve The tricuspid valve is normal in structure and function. There is mild tricuspid regurgitation. Righ t ventricular systolic pressure is 28 mmhg. Assuming the RA pressure is 10 mmHg. Aortic Valve There is mild aortic valve thickening. Trace aortic regurgitation. Pulmonic Valve The pulmonic valve is not well visualized. Great Vessels The aortic root is normal size. Pericardium/Pleura There is no pericardial effusion. There is no pleural effusion. Summary Statements The left ventricle is normal in size. Septal motion is consistent with conduction abnormality. There is severe global hypokinesis of the left ventricle. Left ventricular systolic function is severely reduced. There is mild mitral regurgitation. There is mild tricuspid regurgitation. Trace aortic regurgitation. MD Shahriar Pope 01/25/2020, 1:29 PM Ordering Physician: Kyle Faria Referring Physician: ARIEL Performed By: Moni Diaz
--- NOTE | 2020-01-25 13:41 | PN ---
Progress Note, Physician History of Present Illness: Pt seen and examined at bedside. She remains confused. - Current Medication List Current Medications: Active Medications Acetaminophen (Tylenol -) 650 mg PO Q6H PRN PRN Reason: PAIN LEVEL 4 - 6 Last Admin: 01/24/20 22:02 Dose: 650 mg Documented by: Aspirin (Ecotrin -) 81 mg PO DAILY [facility] Last Admin: 01/25/20 12:35 Dose: 81 mg Documented by: Atorvastatin Calcium (Lipitor -) 80 mg PO HS [facility] Last Admin: 01/24/20 22:03 Dose: 80 mg Documented by: Sodium Chloride (1/2 Normal Saline) 1,000 mls @ 75 mls/hr IV ASDIR [facility] Last Admin: 01/25/20 12:35 Dose: 75 mls/hr Documented by: Insulin Aspart (Novolog Vial Sliding Scale -) 1 vial SQ ACHS [facility]; Protocol Last Admin: 01/25/20 12:39 Dose: Not Given Documented by: Metoprolol Succinate (Toprol Xl -) 100 mg PO DAILY [facility] Last Admin: 01/25/20 12:35 Dose: 100 mg Documented by: Repaglinide (Prandin -) 1 mg PO TIDAC [facility] Last Admin: 01/25/20 12:34 Dose: 1 mg Documented by: - Objective Vital Signs: Vital Signs Temperature 97.9 F 01/25/20 09:00 Pulse Rate 95 H 01/25/20 09:00 Respiratory Rate 18 01/25/20 09:00 Blood Pressure 127/76 01/25/20 09:00 O2 Sat by Pulse Oximetry (%) 98 01/25/20 09:00 Constitutional: Yes: Calm Eyes: Yes: Conjunctiva Clear HENT: Yes: Atraumatic Neck: Yes: Supple Cardiovascular: Yes: S1, S2 Respiratory: Yes: CTA Bilaterally Gastrointestinal: Yes: Soft Genitourinary: Yes: WNL Edema: No Neurological: Yes: Confusion Labs: CBC, BMP 01/25/20 07:00 01/25/20 07:00 INR, PTT INR 0.92 (0.83-1.09) 01/17/20 13:30 Problem List - Problems (1) CAD (coronary artery disease) Code(s): I25.10 - ATHSCL HEART DISEASE OF [place] CORONARY ARTERY W/O ANG PCTRS (2) Rhabdomyolysis Code(s): M62.82 - RHABDOMYOLYSIS Assessment/Plan Current Medications Generic Name Dose Route Start Last Admin Trade Name Molly PRN Reason Stop Dose Admin Acetaminophen 650 mg 01/23/20 06:45 01/24/20 22:02 Tylenol - PO 650 mg Q6H PRN Administration PAIN LEVEL 4 - 6 Aspirin 81 mg 01/18/20 10:00 01/25/20 12:35 Ecotrin - PO 81 mg DAILY [facility] Administration Atorvastatin Calcium 80 mg 01/17/20 22:00 01/24/20 22:03 Lipitor - PO 80 mg HS [facility] Administration Sodium Chloride 1,000 mls @ 75 mls/hr 01/24/20 13:30 01/25/20 12:35 1/2 Normal Saline IV 75 mls/hr ASDIR ANASTASI[facility] Administration Insulin Aspart 1 vial 01/23/20 22:00 01/25/20 12:39 Novolog Vial Sliding Scale - SQ Not Given ACHS [facility] Protocol Metoprolol Succinate 100 mg 01/18/20 10:00 01/25/20 12:35 Toprol Xl - PO 100 mg DAILY [facility] Administration Repaglinide 1 mg 01/24/20 07:00 01/25/20 12:34 Prandin - PO 1 mg TIDAC [facility]NAST[facility] Administration Impression 1. WILTON 2. CKD 3. rhabdo 4. s/p fall 5. hld 6. cad 7. dementia Plan - cont fluids - statin restarted - monitor cpk - can give lasix if she develops overload - renal function improving - repeat labs in am
--- NOTE | 2020-01-25 15:13 | PN ---
Progress Note, Physician History of Present Illness: stable - Current Medication List Current Medications: Active Medications Acetaminophen (Tylenol -) 650 mg PO Q6H PRN PRN Reason: PAIN LEVEL 4 - 6 Last Admin: 01/24/20 22:02 Dose: 650 mg Documented by: Aspirin (Ecotrin -) 81 mg PO DAILY [facility] Last Admin: 01/25/20 12:35 Dose: 81 mg Documented by: Atorvastatin Calcium (Lipitor -) 80 mg PO HS [facility] Last Admin: 01/24/20 22:03 Dose: 80 mg Documented by: Sodium Chloride (1/2 Normal Saline) 1,000 mls @ 75 mls/hr IV ASDIR [facility] Last Admin: 01/25/20 12:35 Dose: 75 mls/hr Documented by: Insulin Aspart (Novolog Vial Sliding Scale -) 1 vial SQ ACHS [facility]; Protocol Last Admin: 01/25/20 12:39 Dose: Not Given Documented by: Metoprolol Succinate (Toprol Xl -) 100 mg PO DAILY [facility] Last Admin: 01/25/20 12:35 Dose: 100 mg Documented by: Repaglinide (Prandin -) 1 mg PO TIDAC [facility] Last Admin: 01/25/20 12:34 Dose: 1 mg Documented by: - Objective Vital Signs: Vital Signs Temperature 97.9 F 01/25/20 09:00 Pulse Rate 95 H 01/25/20 09:00 Respiratory Rate 18 01/25/20 09:00 Blood Pressure 127/76 01/25/20 09:00 O2 Sat by Pulse Oximetry (%) 98 01/25/20 09:00 Constitutional: Yes: No Distress, Obese HENT: Yes: Atraumatic Neck: Yes: Supple Cardiovascular: Yes: Regular Rate and Rhythm Respiratory: Yes: CTA Bilaterally Gastrointestinal: Yes: Normal Bowel Sounds Extremities: Yes: WNL Labs: CBC, BMP 01/25/20 07:00 01/25/20 07:00 INR, PTT INR 0.92 (0.83-1.09) 01/17/20 13:30 Problem List - Problems (1) Elevated troponin Assessment/Plan: down trending Code(s): R79.89 - OTHER SPECIFIED ABNORMAL FINDINGS OF BLOOD CHEMISTRY (2) Fall Assessment/Plan: PT Code(s): W19.XXXA - UNSPECIFIED FALL, INITIAL ENCOUNTER (3) Hyperglycemia Code(s): R73.9 - HYPERGLYCEMIA, UNSPECIFIED (4) Rhabdomyolysis Assessment/Plan: on ivf cpk trending down Code(s): M62.82 - RHABDOMYOLYSIS (5) CAD (coronary artery disease) Code(s): I25.10 - ATHSCL HEART DISEASE OF [place] CORONARY ARTERY W/O ANG PCTRS (6) Dementia Code(s): F03.90 - UNSPECIFIED DEMENTIA WITHOUT BEHAVIORAL DISTURBANCE (7) Diabetes mellitus Assessment/Plan: on meds Code(s): E11.9 - TYPE 2 DIABETES MELLITUS WITHOUT COMPLICATIONS Qualifiers: Diabetes mellitus type: type 2 Diabetes mellitus residential insulin use: without buttermaker continuous churn use Diabetes mellitus complication status: without complication Qualified Code(s): E11.9 - Type 2 diabetes mellitus without complications (8) HTN (hypertension) Code(s): I10 - ESSENTIAL (PRIMARY) HYPERTENSION Qualifiers: Hypertension type: essential hypertension Qualified Code(s): I10 - Essential (primary) hypertension (9) Presence of cardiac pacemaker Code(s): Z95.0 - PRESENCE OF CARDIAC PACEMAKER (10) Metabolic encephalopathy Assessment/Plan: probably due to diabetes..d/d pt does have alzheimers dementia Code(s): G93.41 - METABOLIC ENCEPHALOPATHY Assessment/Plan spoke to daughter yvonne she is requesting psych consult also she said her weight at home is 114 lbs right before she came
[2020-01-25] MEDS: ACETAMINOPHEN 325 MG TABLET (FP) PO PRN (16:54)
[2020-01-25] MEDS ORDERED: FUROSEMIDE 40 MG TABLET (FP) PO SCH (17:45)
[2020-01-25] MEDS ORDERED: FUROSEMIDE 40 MG/4 ML INJECTABLE VIAL IVPUSH ONE (17:49)
[2020-01-25] MEDS: ISOSORBIDE DINITRATE 10 MG TABLET (FP) PO SCH (18:11)
[2020-01-25 18:53] LABS: N-TERMINAL BNP 95428.1 pg/ml (5-450)
[2020-01-25] MEDS ORDERED: SODIUM CHLORIDE 0.45% 1,000 ML IV SCH (19:09)
[2020-01-25] MEDS: ATORVASTATIN CA 80 MG TABLET (FP) PO SCH (21:48)
[2020-01-25] MEDS: hydrALAZINE HCL 10 MG TABLET PO SCH (21:48)
[2020-01-25] MEDS ORDERED: CARVEDILOL 6.25 MG TABLET (FP) PO SCH (22:00)
--- NOTE | 2020-01-26 05:42 | RAPID ---
Physical Examination Vital Signs: Rapid response called overhead to 4W at 05:36. CHANNEL PROGRAM MANAGER arrived. Pt was had BM and was found face-down on ground, unwitnessed fall. Stool all over ground. Complaining of chest pain, denies any other complaints. Vital signs: BP: 145/77 HR: 90 O2: 99% on 5L NC PE: Heart RRR normal S1 S2, no murmurs Lungs CTAB Ext 2+ pulls Neuro: @ baseline, following all basic commands Ordered: EKG, labs, CT head and c-spine, XR of knees, hips, shoulders EKG reviewed, unchanged from prior. Labs: CBC, BMP 01/25/20 07:00 01/25/20 07:00
[2020-01-26] MEDS: INSULIN SLIDING SCALE (NOVOLOG) 1 VIAL SQ SCH ×4 (07:09→21:32)
[2020-01-26] MEDS: REPAGLINIDE 0.5 MG TABLET (FP) PO SCH ×3 (07:10→17:32)
[2020-01-26 08:01] LABS: ALBUMIN 2.8 g/dl (3.4-5.0); BASO % 0.4 % (0-2.0); BILIRUBIN,TOTAL 1.4 mg/dL (0.2-1); BLOOD UREA NITROGEN 41.2 mg/dL (7-18); CALCIUM 8.5 mg/dL (8.5-10.1); CREATININE 2.5 mg/dL (0.55-1.3); EOS % 0.3 % (0-4.5); HEMATOCRIT 24.8 % (32.4-45.2); HEMOGLOBIN 8.2 GM/dL (10.7-15.3); LYMPH % 17.1 % (8-40); MCH 29.4 pg (25.7-33.7); MEAN CELL VOLUME 89.2 fl (80-96); MONO % 11.7 % (3.8-10.2); NEUT % 70.5 % (42.8-82.8); PLATELET COUNT 184 K/MM3 (134-434); POTASSIUM 4.7 mmol/L (3.5-5.1); RBC 2.78 M/mm3 (3.60-5.2); RDW 20.2 % (11.6-15.6); TOT PROT 5.2 g/dl (6.4-8.2); WHITE BLOOD COUNT 6.8 K/mm3 (4.0-10.0)
[2020-01-26] MEDS ORDERED: PT OWN MED DRAWER 7, Y5N ONE ×3 (08:37→17:34)
[2020-01-26] MEDS: hydrALAZINE HCL 10 MG TABLET PO SCH ×2 (10:20→21:24)
[2020-01-26] MEDS: ISOSORBIDE DINITRATE 10 MG TABLET (FP) PO SCH ×2 (10:20→17:35)
[2020-01-26] MEDS: ASPIRIN COATED 81 MG TABLET.EC PO SCH (10:20)
[2020-01-26] MEDS: PANTOPRAZOLE 40 MG TABLET PO SCH (10:20)
--- NOTE | 2020-01-26 10:57 | PN ---
Progress Note, Physician History of Present Illness: Found on floor overnight, trying to go to bathroom and slipped and fell. Denies near or true syncope, denies chest pain, palpitations, dyspnea, orthopnea. - Current Medication List Current Medications: Active Medications Acetaminophen (Tylenol -) 650 mg PO Q6H PRN PRN Reason: PAIN LEVEL 4 - 6 Last Admin: 01/25/20 16:54 Dose: 650 mg Documented by: Aspirin (Ecotrin -) 81 mg PO DAILY [facility] Last Admin: 01/26/20 10:20 Dose: 81 mg Documented by: Atorvastatin Calcium (Lipitor -) 80 mg PO HS [facility] Last Admin: 01/25/20 21:48 Dose: 80 mg Documented by: Hydralazine HCl (Apresoline -) 10 mg PO BID [facility] Last Admin: 01/26/20 10:20 Dose: 10 mg Documented by: Insulin Aspart (Novolog Vial Sliding Scale -) 1 vial SQ [facility]; Protocol Last Admin: 01/26/20 07:09 Dose: Not Given Documented by: Isosorbide Dinitrate (Isordil -) 10 mg PO BIDISORDIL [facility] Last Admin: 01/26/20 10:20 Dose: 10 mg Documented by: Metoprolol Succinate (Toprol Xl -) 100 mg PO DAILY [facility] Last Admin: 01/26/20 10:20 Dose: 100 mg Documented by: Pantoprazole Sodium (Protonix -) 40 mg PO DAILY [facility] Last Admin: 01/26/20 10:20 Dose: 40 mg Documented by: Repaglinide (Prandin -) 1 mg PO TIDAC [facility] Last Admin: 01/26/20 07:10 Dose: 1 mg Documented by: - Objective Vital Signs: Vital Signs Temperature 97.4 F L 01/26/20 05:45 Pulse Rate 94 H 01/26/20 05:45 Respiratory Rate 20 01/26/20 05:45 Blood Pressure 145/77 01/26/20 05:45 O2 Sat by Pulse Oximetry (%) 97 01/25/20 21:00 Constitutional: Yes: No Distress, Calm, Thin Neck: Yes: Supple Cardiovascular: Yes: Regular Rate and Rhythm Respiratory: Yes: Regular, Diminished, On Nasal O2 Gastrointestinal: Yes: Soft, Hypoactive Bowel Sounds Edema: No Labs: CBC, BMP 01/26/20 05:50 01/26/20 05:50 INR, PTT INR 0.92 (0.83-1.09) 01/17/20 13:30 - ....Imaging EKG: Report Reviewed (AV-paced @ 88 occ PVC Tele: AV paced) Problem List - Problems (1) Biventricular implantable cardioverter-defibrillator (ICD) in situ Code(s): Z95.810 - PRESENCE OF AUTOMATIC (IMPLANTABLE) CARDIAC DEFIBRILLATOR Assessment/Plan Problem List - Problems (1) CAD (coronary artery disease) Code(s): I25.10 - ATHSCL HEART DISEASE OF [place] CORONARY ARTERY W/O ANG PCTRS (2) Diabetes mellitus Code(s): E11.9 - TYPE 2 DIABETES MELLITUS WITHOUT COMPLICATIONS Qualifiers: Diabetes mellitus type: type 2 Diabetes mellitus superintendent marine oil terminal insulin use: without superintendent marine oil terminal use Diabetes mellitus complication status: without complication Qualified Code(s): E11.9 - Type 2 diabetes mellitus without complications (3) HTN (hypertension) Code(s): I10 - ESSENTIAL (PRIMARY) HYPERTENSION Qualifiers: Hypertension type: essential hypertension Qualified Code(s): I10 - Essential (primary) hypertension (5) Elevated troponin Code(s): R79.89 - OTHER SPECIFIED ABNORMAL FINDINGS OF BLOOD CHEMISTRY (6) Fall Code(s): W19.XXXA - UNSPECIFIED FALL, INITIAL ENCOUNTER Assessment/Plan Echocardiography report noted with severely reduced LVEF 25%, mild MR and TR c/w previous in December 2018, LVEF remains 25% 1. Recurrent Fall with weakness, no LOC 2. HTN 3. CAD with history of [place], angina pectoris, demand ischemia 4. DM 5. History of CHF s/p CardioMEMS device 6. Sick sinus syndrome s/p [employer] 7. CKD 8. Hypercholesterolemia 9. Toxic metabolic encephalopathy and underlying dementia PLAN: 1. Continue Metoprolol ER 100 mg QD. Lipitor 80 mg QD and ASA 81 mg QD, Isordil 10/Hydralazine 10 bid (BiDil) added 2. Diuresis as needed with monitor diuretic response, renal fxn and electrolytes, Cardiomems surveillance 3. Monitor renal function and electrolytes. K supplement 4. Troponin downtrending 5. DVT prophylaxis, f/u with Dr. Desmond Parrish at [facility], Shabana Pantoja [facility] [phone]
--- NOTE | 2020-01-26 11:19 | EKG ---
Test Reason : Blood Pressure : / mmHG Vent. Rate : 088 BPM Atrial Rate : 086 BPM P-R Int : 162 ms QRS Dur : 112 ms QT Int : 424 ms P-R-T Axes : 003 -57 267 degrees QTc Int : 513 ms Atrial-sensed ventricular-paced rhythm WITH OCCASIONAL atrial-paced complexes AND WITH FREQUENT PREMATURE VENTRICULAR COMPLEXES Biventricular pacemaker detected ABNORMAL ECG Confirmed by MD HASSAN MOYSES ([id number]) on 01/26/2020 11:19:28 AM Referred By: Confirmed By:KRISTEN HASSAN MD
--- NOTE | 2020-01-26 13:18 | CON.PSY ---
Psychiatry Consult Chief Complaint: Patient seen for Psych eval.. said, you are good looking, why dont you take your Shirt and pants off and lie next to me... - Previous Psychiatric Treatment Outpatient: None Inpatient: None - Previous Substance Abuse Treatment Outpatient: None Inpatient: None - Current Medications Current Medications: Active Medications Acetaminophen (Tylenol -) 650 mg PO Q6H PRN PRN Reason: PAIN LEVEL 4 - 6 Last Admin: 01/25/20 16:54 Dose: 650 mg Documented by: Aspirin (Ecotrin -) 81 mg PO DAILY [facility] Last Admin: 01/26/20 10:20 Dose: 81 mg Documented by: Atorvastatin Calcium (Lipitor -) 80 mg PO HS [facility] Last Admin: 01/25/20 21:48 Dose: 80 mg Documented by: Hydralazine HCl (Apresoline -) 10 mg PO BID [facility] Last Admin: 01/26/20 10:20 Dose: 10 mg Documented by: Insulin Aspart (Novolog Vial Sliding Scale -) 1 vial SQ ACHS [facility]; Protocol Last Admin: 01/26/20 11:46 Dose: Not Given Documented by: Isosorbide Dinitrate (Isordil -) 10 mg PO BIDISORDIL [facility] Last Admin: 01/26/20 10:20 Dose: 10 mg Documented by: Metoprolol Succinate (Toprol Xl -) 100 mg PO DAILY [facility] Last Admin: 01/26/20 10:20 Dose: 100 mg Documented by: Pantoprazole Sodium (Protonix -) 40 mg PO DAILY [facility] Last Admin: 01/26/20 10:20 Dose: 40 mg Documented by: Repaglinide (Prandin -) 1 mg PO TIDAC [facility] Last Admin: 01/26/20 11:47 Dose: 1 mg Documented by: - Allergies Allergies: Allergies Allergy/AdvReac Type Severity Reaction Status Date / Time No Known Allergies Allergy Verified 01/17/20 14:26 - Current Living Status Usual Living Arrangement: Alone - Current Mental Status Evaluation Appearance: Well Groomed Attitude: Cooperative - Affect Affect: Full Range Appropriateness: Not Appropriate - Mood Mood: Euthymic - Speech/Language Expressive: Coherent - Psychomotor Activity Psychomotor Activity: Normal - Thought Process Thought Process: Intact - Thought Content Hallucinations: Absent Delusions: Absent - Self Perception Self Perception: No Impairment - Cognition Attention: Alert Orientation: Time Memory, Immediate Recall: Intact Memory, Short Term: 2/3 Memory, Remote with Promptin/3 - Concentration Serial Sevens Intact: No Simple Calculations Intact: No - Abstraction Proverb Interpretation: Intact Judgement: Minimally Impaired - Insight Insight: Intact - Impulse Control Impulse Control: Good Control - Suicidal Ideation Suicidal Ideation: No - Homicidal Ideation Homicidal Ideation: No Assessment/Plan 1) No evidence of any Clinical Depression.. No need for Psych meds at this time.
--- NOTE | 2020-01-26 14:44 | PN ---
Progress Note, Physician History of Present Illness: Pt seen and examined at bedside. She remains confused. - Current Medication List Current Medications: Active Medications Acetaminophen (Tylenol -) 650 mg PO Q6H PRN PRN Reason: PAIN LEVEL 4 - 6 Last Admin: 01/25/20 16:54 Dose: 650 mg Documented by: Aspirin (Ecotrin -) 81 mg PO DAILY [facility] Last Admin: 01/26/20 10:20 Dose: 81 mg Documented by: Atorvastatin Calcium (Lipitor -) 80 mg PO HS [facility] Last Admin: 01/25/20 21:48 Dose: 80 mg Documented by: Hydralazine HCl (Apresoline -) 10 mg PO BID [facility] Last Admin: 01/26/20 10:20 Dose: 10 mg Documented by: Insulin Aspart (Novolog Vial Sliding Scale -) 1 vial SQ ACHS [facility]; Protocol Last Admin: 01/26/20 11:46 Dose: Not Given Documented by: Isosorbide Dinitrate (Isordil -) 10 mg PO BIDISORDIL [facility] Last Admin: 01/26/20 10:20 Dose: 10 mg Documented by: Metoprolol Succinate (Toprol Xl -) 100 mg PO DAILY [facility] Last Admin: 01/26/20 10:20 Dose: 100 mg Documented by: Pantoprazole Sodium (Protonix -) 40 mg PO DAILY [facility] Last Admin: 01/26/20 10:20 Dose: 40 mg Documented by: Repaglinide (Prandin -) 1 mg PO TIDAC [facility] Last Admin: 01/26/20 11:47 Dose: 1 mg Documented by: - Objective Vital Signs: Vital Signs Temperature 97.8 F 01/26/20 13:51 Pulse Rate 96 H 01/26/20 13:51 Respiratory Rate 18 01/26/20 13:48 Blood Pressure 130/74 01/26/20 13:51 O2 Sat by Pulse Oximetry (%) 100 01/26/20 09:00 Constitutional: Yes: Calm Eyes: Yes: Conjunctiva Clear Cardiovascular: Yes: S1, S2 Respiratory: Yes: CTA Bilaterally Gastrointestinal: Yes: Soft Genitourinary: Yes: WNL Musculoskeletal: Yes: Muscle Weakness Edema: Yes Integumentary: Yes: WNL Neurological: Yes: Confusion Psychiatric: Yes: Oriented Labs: CBC, BMP 01/26/20 05:50 01/26/20 05:50 INR, PTT INR 0.92 (0.83-1.09) 01/17/20 13:30 Problem List - Problems (1) CAD (coronary artery disease) Code(s): I25.10 - ATHSCL HEART DISEASE OF [place] CORONARY ARTERY W/O ANG PCTRS (2) Rhabdomyolysis Code(s): M62.82 - RHABDOMYOLYSIS Assessment/Plan Current Medications Generic Name Dose Route Start Last Admin Trade Name Freq PRN Reason Stop Dose Admin Acetaminophen 650 mg 01/23/20 06:45 01/25/20 16:54 Tylenol - PO 650 mg Q6H PRN Administration PAIN LEVEL 4 - 6 Aspirin 81 mg 01/18/20 10:00 01/26/20 10:20 Ecotrin - PO 81 mg DAILY [facility] Administration Atorvastatin Calcium 80 mg 01/17/20 22:00 01/25/20 21:48 Lipitor - PO 80 mg HS [facility] Administration Hydralazine HCl 10 mg 01/25/20 22:00 01/26/20 10:20 Apresoline - PO 10 mg BID [facility] Administration Insulin Aspart 1 vial 01/23/20 22:00 01/26/20 11:46 Novolog Vial Sliding Scale - SQ Not Given ACHS [facility] Protocol Isosorbide Dinitrate 10 mg 01/25/20 18:00 01/26/20 10:20 Isordil - PO 10 mg BIDISORDIL [facility] Administration Metoprolol Succinate 100 mg 01/26/20 10:00 01/26/20 10:20 Toprol Xl - PO 100 mg DAILY [facility] Administration Pantoprazole Sodium 40 mg 01/26/20 10:00 01/26/20 10:20 Protonix - PO 40 mg DAILY [facility] Administration Repaglinide 1 mg 01/24/20 07:00 01/26/20 11:47 Prandin - PO 1 mg TIDAC [facility] Administration Impression 1. [place] 2. CKD 3. rhabdo 4. s/p fall 5. hld 6. cad 7. dementia Plan - cpk improving - d/c fluids - can get another dose of lasix - repeat labs in am - monitor volume status - statin restarted - repeat labs in am
--- NOTE | 2020-01-26 14:55 | EKG ---
Test Reason : Blood Pressure : / mmHG Vent. Rate : 091 BPM Atrial Rate : 091 BPM P-R Int : 144 ms QRS Dur : 138 ms QT Int : 446 ms P-R-T Axes : 052 -57 111 degrees QTc Int : 548 ms SINUS RHYTHM WITH MARKED SINUS ARRHYTHMIA WITH FREQUENT ventricular-paced complexes LEFT AXIS DEVIATION NON-SPECIFIC INTRA-VENTRICULAR CONDUCTION BLOCK POSSIBLE LATERAL INFARCT , AGE UNDETERMINED ABNORMAL ECG WHEN COMPARED WITH ECG OF 24-JAN-2020 11:51, VENT. RATE HAS DECREASED BY 11 BPM Confirmed by MD Son, Desmond ([id number]) on 01/26/2020 2:55:07 PM Referred By: Confirmed By:Desmond Cline MD
[2020-01-26] MEDS ORDERED: FUROSEMIDE 40 MG/4 ML INJECTABLE VIAL IVPUSH ONE (15:00)
--- NOTE | 2020-01-26 15:16 | PN ---
Progress Note, Physician History of Present Illness: pain left wrist - Current Medication List Current Medications: Active Medications Acetaminophen (Tylenol -) 650 mg PO Q6H PRN PRN Reason: PAIN LEVEL 4 - 6 Last Admin: 01/25/20 16:54 Dose: 650 mg Documented by: Aspirin (Ecotrin -) 81 mg PO DAILY [facility] Last Admin: 01/26/20 10:20 Dose: 81 mg Documented by: Atorvastatin Calcium (Lipitor -) 80 mg PO HS [facility] Last Admin: 01/25/20 21:48 Dose: 80 mg Documented by: Furosemide (Lasix -) 40 mg PO DAILY [facility] Hydralazine HCl (Apresoline -) 10 mg PO BID [facility] Last Admin: 01/26/20 10:20 Dose: 10 mg Documented by: Insulin Aspart (Novolog Vial Sliding Scale -) 1 vial SQ ACHS [facility]; Protocol Last Admin: 01/26/20 11:46 Dose: Not Given Documented by: Isosorbide Dinitrate (Isordil -) 10 mg PO BIDISORDIL [facility] Last Admin: 01/26/20 10:20 Dose: 10 mg Documented by: Metoprolol Succinate (Toprol Xl -) 100 mg PO DAILY [facility] Last Admin: 01/26/20 10:20 Dose: 100 mg Documented by: Pantoprazole Sodium (Protonix -) 40 mg PO DAILY [facility] Last Admin: 01/26/20 10:20 Dose: 40 mg Documented by: Repaglinide (Prandin -) 1 mg PO TIDAC [facility] Last Admin: 01/26/20 11:47 Dose: 1 mg Documented by: - Objective Vital Signs: Vital Signs Temperature 97.8 F 01/26/20 13:51 Pulse Rate 96 H 01/26/20 13:51 Respiratory Rate 18 01/26/20 13:48 Blood Pressure 130/74 01/26/20 13:51 O2 Sat by Pulse Oximetry (%) 100 01/26/20 09:00 Constitutional: Yes: No Distress HENT: Yes: Atraumatic Neck: Yes: Supple Cardiovascular: Yes: Regular Rate and Rhythm Respiratory: Yes: CTA Bilaterally Gastrointestinal: Yes: Normal Bowel Sounds Extremities: Yes: Other (left wrist mild tender to touch) Neurological: Yes: Alert Labs: CBC, BMP 01/26/20 05:50 01/26/20 05:50 INR, PTT INR 0.92 (0.83-1.09) 01/17/20 13:30 Problem List - Problems (1) Elevated troponin Assessment/Plan: down trending Code(s): R79.89 - OTHER SPECIFIED ABNORMAL FINDINGS OF BLOOD CHEMISTRY (2) Fall Assessment/Plan: events noted pt fell head ct /xrays negative will order L wrist xray Code(s): W19.XXXA - UNSPECIFIED FALL, INITIAL ENCOUNTER (3) Hyperglycemia Code(s): R73.9 - HYPERGLYCEMIA, UNSPECIFIED (4) Rhabdomyolysis Assessment/Plan: off of ivf...bnp going up/chf cpk trending down Code(s): M62.82 - RHABDOMYOLYSIS (5) CAD (coronary artery disease) Code(s): I25.10 - ATHSCL HEART DISEASE OF [place] CORONARY ARTERY W/O ANG PCTRS (6) Dementia Code(s): F03.90 - UNSPECIFIED DEMENTIA WITHOUT BEHAVIORAL DISTURBANCE (7) Diabetes mellitus Assessment/Plan: on meds monitor bgms Code(s): E11.9 - TYPE 2 DIABETES MELLITUS WITHOUT COMPLICATIONS Qualifiers: Diabetes mellitus type: type 2 Diabetes mellitus chcf insulin use: without chcf use Diabetes mellitus complication status: without complication Qualified Code(s): E11.9 - Type 2 diabetes mellitus without complications (8) HTN (hypertension) Code(s): I10 - ESSENTIAL (PRIMARY) HYPERTENSION Qualifiers: Hypertension type: essential hypertension Qualified Code(s): I10 - Essential (primary) hypertension (9) Presence of cardiac pacemaker Code(s): Z95.0 - PRESENCE OF CARDIAC PACEMAKER (10) Metabolic encephalopathy Assessment/Plan: probably due to diabetes..d/d pt does have alzheimers dementia Code(s): G93.41 - METABOLIC ENCEPHALOPATHY Assessment/Plan spoke with pts daughter in psychiatric hospital
[2020-01-26] MEDS: FUROSEMIDE 40 MG TABLET (FP) PO SCH (15:30)
[2020-01-26] MEDS ORDERED: INSULIN (NOVOLOG) ASPART 100 UNITS/ML 10ML VIAL ONE (20:50)
[2020-01-26] MEDS: ATORVASTATIN CA 80 MG TABLET (FP) PO SCH (21:24)
[2020-01-26] MEDS: ACETAMINOPHEN 325 MG TABLET (FP) PO PRN (21:24)
[2020-01-27] MEDS ORDERED: PT OWN MED DRAWER 7, Y5N ONE ×2 (05:03→09:54)
[2020-01-27] MEDS: INSULIN SLIDING SCALE (NOVOLOG) 1 VIAL SQ SCH ×4 (06:20→21:02)
[2020-01-27] MEDS: REPAGLINIDE 0.5 MG TABLET (FP) PO SCH ×3 (06:31→16:37)
[2020-01-27 08:31] LABS: POTASSIUM 4.5 mmol/L (3.5-5.1)
[2020-01-27 08:37] LABS: ALBUMIN 2.8 g/dl (3.4-5.0); BLOOD UREA NITROGEN 45.2 mg/dL (7-18); CALCIUM 8.5 mg/dL (8.5-10.1); CREATININE 2.6 mg/dL (0.55-1.3); TOT PROT 5.2 g/dl (6.4-8.2)
--- NOTE | 2020-01-27 10:10 | PN ---
Progress Note, Physician History of Present Illness: Denies near or true syncope, denies chest pain, palpitations, dyspnea, orthopnea. - Current Medication List Current Medications: Active Medications Acetaminophen (Tylenol -) 650 mg PO Q6H PRN PRN Reason: PAIN LEVEL 4 - 6 Last Admin: 01/26/20 21:24 Dose: 650 mg Documented by: Aspirin (Ecotrin -) 81 mg PO DAILY [facility] Last Admin: 01/26/20 10:20 Dose: 81 mg Documented by: Atorvastatin Calcium (Lipitor -) 80 mg PO HS [facility] Last Admin: 01/26/20 21:24 Dose: 80 mg Documented by: Furosemide (Lasix -) 40 mg PO DAILY [facility] Last Admin: 01/26/20 15:30 Dose: 40 mg Documented by: Hydralazine HCl (Apresoline -) 10 mg PO BID [facility] Last Admin: 01/26/20 21:24 Dose: 10 mg Documented by: Insulin Aspart (Novolog Vial Sliding Scale -) 1 vial SQ ACHS [facility]; Protocol Last Admin: 01/27/20 06:20 Dose: Not Given Documented by: Isosorbide Dinitrate (Isordil -) 10 mg PO BIDISORDIL [facility] Last Admin: 01/26/20 17:35 Dose: 10 mg Documented by: Metoprolol Succinate (Toprol Xl -) 100 mg PO DAILY [facility] Last Admin: 01/26/20 10:20 Dose: 100 mg Documented by: Pantoprazole Sodium (Protonix -) 40 mg PO DAILY [facility] Last Admin: 01/26/20 10:20 Dose: 40 mg Documented by: Repaglinide (Prandin -) 1 mg PO TIDAC [facility] Last Admin: 01/27/20 06:31 Dose: 1 mg Documented by: - Objective Vital Signs: Vital Signs Temperature 97.5 F L 01/27/20 08:12 Pulse Rate 103 H 01/27/20 08:12 Respiratory Rate 20 01/27/20 08:12 Blood Pressure 125/69 01/27/20 08:12 O2 Sat by Pulse Oximetry (%) 100 01/26/20 21:00 Constitutional: Yes: No Distress, Calm Neck: Yes: Supple Cardiovascular: Yes: Regular Rate and Rhythm Respiratory: Yes: Regular, Diminished, On Nasal O2 Gastrointestinal: Yes: Normal Bowel Sounds, Soft Edema: No Labs: CBC, BMP 01/26/20 05:50 01/27/20 06:05 INR, PTT INR 0.92 (0.83-1.09) 01/17/20 13:30 Problem List - Problems (1) Biventricular implantable cardioverter-defibrillator (ICD) in situ Code(s): Z95.810 - PRESENCE OF AUTOMATIC (IMPLANTABLE) CARDIAC DEFIBRILLATOR Assessment/Plan Problem List - Problems (1) CAD (coronary artery disease) Code(s): I25.10 - ATHSCL HEART DISEASE OF [place] CORONARY ARTERY W/O ANG PCTRS (2) Diabetes mellitus Code(s): E11.9 - TYPE 2 DIABETES MELLITUS WITHOUT COMPLICATIONS Qualifiers: Diabetes mellitus type: type 2 Diabetes mellitus skilled nursing insulin use: without skilled nursing use Diabetes mellitus complication status: without complication Qualified Code(s): E11.9 - Type 2 diabetes mellitus without complications (3) HTN (hypertension) Code(s): I10 - ESSENTIAL (PRIMARY) HYPERTENSION Qualifiers: Hypertension type: essential hypertension Qualified Code(s): I10 - Essential (primary) hypertension (5) Elevated troponin Code(s): R79.89 - OTHER SPECIFIED ABNORMAL FINDINGS OF BLOOD CHEMISTRY (6) Fall Code(s): W19.XXXA - UNSPECIFIED FALL, INITIAL ENCOUNTER Assessment/Plan Echocardiography report noted with severely reduced LVEF 25%, mild MR and TR c/w previous in December 2018, LVEF remains 25% 1. Recurrent Fall with weakness, no LOC 2. HTN 3. CAD with history of [place], angina pectoris, demand ischemia 4. DM 5. History of CHF s/p CardioMEMS device 6. Sick sinus syndrome s/p [employer] 7. CKD 8. Hypercholesterolemia 9. Toxic metabolic encephalopathy and underlying dementia PLAN: 1. Continue Metoprolol ER 100 mg QD. Lipitor 80 mg QD and ASA 81 mg QD, Isordil 10/Hydralazine 10 bid (BiDil) added 2. Lasix 40 qd with monitor diuretic response, renal fxn and electrolytes, Cardiomems surveillance 3. Monitor renal function and electrolytes. K supplement 4. Troponin downtrending 5. DVT prophylaxis, f/u with Dr. Desmond Parrish at [facility], Shabana Pantoja [facility] [phone]
[2020-01-27] MEDS: ASPIRIN COATED 81 MG TABLET.EC PO SCH (10:43)
[2020-01-27] MEDS: PANTOPRAZOLE 40 MG TABLET PO SCH (10:43)
[2020-01-27] MEDS: ISOSORBIDE DINITRATE 10 MG TABLET (FP) PO SCH ×2 (10:43→17:16)
[2020-01-27] MEDS: FUROSEMIDE 40 MG TABLET (FP) PO SCH (10:43)
[2020-01-27] MEDS: hydrALAZINE HCL 10 MG TABLET PO SCH ×2 (10:43→21:02)
[2020-01-27] MEDS: ACETAMINOPHEN 325 MG TABLET (FP) PO PRN (11:52)
--- NOTE | 2020-01-27 16:11 | PN ---
Progress Note, Physician History of Present Illness: Pt seen and examined at bedside. She is awake and appears comfortable. - Current Medication List Current Medications: Active Medications Acetaminophen (Tylenol -) 650 mg PO Q6H PRN PRN Reason: PAIN LEVEL 4 - 6 Last Admin: 01/27/20 11:52 Dose: 650 mg Documented by: Aspirin (Ecotrin -) 81 mg PO DAILY [facility] Last Admin: 01/27/20 10:43 Dose: 81 mg Documented by: Atorvastatin Calcium (Lipitor -) 80 mg PO HS [facility] Last Admin: 01/26/20 21:24 Dose: 80 mg Documented by: Furosemide (Lasix -) 40 mg PO DAILY [facility] Last Admin: 01/27/20 10:43 Dose: 40 mg Documented by: Hydralazine HCl (Apresoline -) 10 mg PO BID [facility] Last Admin: 01/27/20 10:43 Dose: 10 mg Documented by: Insulin Aspart (Novolog Vial Sliding Scale -) 1 vial SQ [facility]; Protocol Last Admin: 01/27/20 11:05 Dose: 2 units Documented by: Isosorbide Dinitrate (Isordil -) 10 mg PO BIDISORDIL [facility] Last Admin: 01/27/20 10:43 Dose: 10 mg Documented by: Metoprolol Succinate (Toprol Xl -) 100 mg PO DAILY [facility] Last Admin: 01/27/20 10:43 Dose: 100 mg Documented by: Pantoprazole Sodium (Protonix -) 40 mg PO DAILY [facility] Last Admin: 01/27/20 10:43 Dose: 40 mg Documented by: Repaglinide (Prandin -) 1 mg PO TIDAC [facility] Last Admin: 01/27/20 11:05 Dose: 1 mg Documented by: - Objective Vital Signs: Vital Signs Temperature 97.5 F L 01/27/20 14:05 Pulse Rate 84 01/27/20 14:05 Respiratory Rate 20 01/27/20 14:05 Blood Pressure 126/75 01/27/20 14:05 O2 Sat by Pulse Oximetry (%) 99 01/27/20 09:00 Constitutional: Yes: Calm Eyes: Yes: Conjunctiva Clear HENT: Yes: Atraumatic Cardiovascular: Yes: S1, S2 Respiratory: Yes: CTA Bilaterally Gastrointestinal: Yes: Soft Genitourinary: Yes: WNL Musculoskeletal: Yes: WNL Edema: LLE: Trace, RLE: Trace Neurological: Yes: Confusion Labs: CBC, BMP 01/26/20 05:50 01/27/20 06:05 INR, PTT INR 0.92 (0.83-1.09) 01/17/20 13:30 Problem List - Problems (1) CAD (coronary artery disease) Code(s): I25.10 - ATHSCL HEART DISEASE OF [place] CORONARY ARTERY W/O ANG PCTRS (2) Rhabdomyolysis Code(s): M62.82 - RHABDOMYOLYSIS Assessment/Plan Current Medications Generic Name Dose Route Start Last Admin Trade Name Freq PRN Reason Stop Dose Admin Acetaminophen 650 mg 01/23/20 06:45 01/27/20 11:52 Tylenol - PO 650 mg Q6H PRN Administration PAIN LEVEL 4 - 6 Aspirin 81 mg 01/18/20 10:00 01/27/20 10:43 Ecotrin - PO 81 mg DAILY ANASTASIYA Administration Atorvastatin Calcium 80 mg 01/17/20 22:00 01/26/20 21:24 Lipitor - PO 80 mg HS ANASTASIYA Administration Furosemide 40 mg 01/26/20 15:30 01/27/20 10:43 Lasix - PO 40 mg DAILY ANASTASIYA Administration Hydralazine HCl 10 mg 01/25/20 22:00 01/27/20 10:43 Apresoline - PO 10 mg BID ANASTASIYA Administration Insulin Aspart 1 vial 01/23/20 22:00 01/27/20 11:05 Novolog Vial Sliding Scale - SQ 2 units ACHS ANASTASIYA Administration Protocol Isosorbide Dinitrate 10 mg 01/25/20 18:00 01/27/20 10:43 Isordil - PO 10 mg BIDISORDIL ANASTASIYA Administration Metoprolol Succinate 100 mg 01/26/20 10:00 01/27/20 10:43 Toprol Xl - PO 100 mg DAILY ANASTASIYA Administration Pantoprazole Sodium 40 mg 01/26/20 10:00 01/27/20 10:43 Protonix - PO 40 mg DAILY ANASTASIYA Administration Repaglinide 1 mg 01/24/20 07:00 01/27/20 11:05 Prandin - PO 1 mg TIDAC ANASTASIYA Administration Impression 1. [place] 2. CKD 3. rhabdo 4. s/p fall 5. hld 6. cad 7. dementia Plan - cpk continues to improve - cont lasix 40 mg daily - pt has been off of fluids - cardio input appreciated - repeat labs in am
--- NOTE | 2020-01-27 18:20 | PN ---
Progress Note, Physician History of Present Illness: doing well - Current Medication List Current Medications: Active Medications Acetaminophen (Tylenol -) 650 mg PO Q6H PRN PRN Reason: PAIN LEVEL 4 - 6 Last Admin: 01/27/20 11:52 Dose: 650 mg Documented by: Aspirin (Ecotrin -) 81 mg PO DAILY [facility] Last Admin: 01/27/20 10:43 Dose: 81 mg Documented by: Atorvastatin Calcium (Lipitor -) 80 mg PO HS [facility] Last Admin: 01/26/20 21:24 Dose: 80 mg Documented by: Furosemide (Lasix -) 40 mg PO DAILY [facility] Last Admin: 01/27/20 10:43 Dose: 40 mg Documented by: Hydralazine HCl (Apresoline -) 10 mg PO BID [facility] Last Admin: 01/27/20 10:43 Dose: 10 mg Documented by: Insulin Aspart (Novolog Vial Sliding Scale -) 1 vial SQ [facility]; Protocol Last Admin: 01/27/20 16:37 Dose: Not Given Documented by: Isosorbide Dinitrate (Isordil -) 10 mg PO BIDISORDIL [facility] Last Admin: 01/27/20 17:16 Dose: 10 mg Documented by: Metoprolol Succinate (Toprol Xl -) 100 mg PO DAILY [facility] Last Admin: 01/27/20 10:43 Dose: 100 mg Documented by: Pantoprazole Sodium (Protonix -) 40 mg PO DAILY [facility] Last Admin: 01/27/20 10:43 Dose: 40 mg Documented by: Repaglinide (Prandin -) 1 mg PO TIDAC [facility] Last Admin: 01/27/20 16:37 Dose: 1 mg Documented by: - Objective Vital Signs: Vital Signs Temperature 97.3 F L 01/27/20 17:45 Pulse Rate 94 H 01/27/20 17:45 Respiratory Rate 20 01/27/20 17:45 Blood Pressure 119/72 01/27/20 17:45 O2 Sat by Pulse Oximetry (%) 99 01/27/20 09:00 Constitutional: Yes: No Distress HENT: Yes: Atraumatic Neck: Yes: Supple Cardiovascular: Yes: Regular Rate and Rhythm Respiratory: Yes: CTA Bilaterally Gastrointestinal: Yes: Normal Bowel Sounds Extremities: Yes: WNL, Other (wrist non tender today) Neurological: Yes: Alert Labs: CBC, BMP 01/26/20 05:50 01/27/20 06:05 INR, PTT INR 0.92 (0.83-1.09) 01/17/20 13:30 Problem List - Problems (1) Elevated troponin Code(s): R79.89 - OTHER SPECIFIED ABNORMAL FINDINGS OF BLOOD CHEMISTRY (2) Fall Assessment/Plan: events noted pt fell head ct /xrays negative L wrist xray....negative Code(s): W19.XXXA - UNSPECIFIED FALL, INITIAL ENCOUNTER (3) Hyperglycemia Code(s): R73.9 - HYPERGLYCEMIA, UNSPECIFIED (4) Rhabdomyolysis Assessment/Plan: off of ivf...bnp going up/chf cpk trending down Code(s): M62.82 - RHABDOMYOLYSIS (5) CAD (coronary artery disease) Code(s): I25.10 - ATHSCL HEART DISEASE OF [place] CORONARY ARTERY W/O ANG PCTRS (6) Dementia Code(s): F03.90 - UNSPECIFIED DEMENTIA WITHOUT BEHAVIORAL DISTURBANCE (7) Diabetes mellitus Code(s): E11.9 - TYPE 2 DIABETES MELLITUS WITHOUT COMPLICATIONS Qualifiers: Diabetes mellitus type: type 2 Diabetes mellitus mcc insulin use: without vendor specialist use Diabetes mellitus complication status: without complication Qualified Code(s): E11.9 - Type 2 diabetes mellitus without complications (8) HTN (hypertension) Code(s): I10 - ESSENTIAL (PRIMARY) HYPERTENSION Qualifiers: Hypertension type: essential hypertension Qualified Code(s): I10 - Essential (primary) hypertension (9) Presence of cardiac pacemaker Code(s): Z95.0 - PRESENCE OF CARDIAC PACEMAKER (10) Metabolic encephalopathy Code(s): G93.41 - METABOLIC ENCEPHALOPATHY (11) CKD (chronic kidney disease) Assessment/Plan: stage 4 as per daughter Code(s): N18.9 - CHRONIC KIDNEY DISEASE, UNSPECIFIED (12) Biventricular implantable cardioverter-defibrillator (ICD) in situ Code(s): Z95.810 - PRESENCE OF AUTOMATIC (IMPLANTABLE) CARDIAC DEFIBRILLATOR
--- NOTE | 2020-01-27 18:36 | DS ---
Physical Examination Vital Signs: Vital Signs Temperature 97.3 F L 01/27/20 17:45 Pulse Rate 94 H 01/27/20 17:45 Respiratory Rate 20 01/27/20 17:45 Blood Pressure 119/72 01/27/20 17:45 O2 Sat by Pulse Oximetry (%) 99 01/27/20 09:00 Labs: CBC, BMP 01/26/20 05:50 01/27/20 06:05 Discharge Summary Problems reviewed: Yes Reason For Visit: ACUTE HYPERGLYCEMIA ACUTE CORONARY SYNDROME Current Active Problems Biventricular implantable cardioverter-defibrillator (ICD) in situ (Acute) CAD (coronary artery disease) (Acute) CKD (chronic kidney disease) (Acute) Dementia (Acute) Diabetes mellitus (Acute) Elevated troponin (Acute) Fall (Acute) HTN (hypertension) (Acute) Hyperglycemia (Acute) Metabolic encephalopathy (Acute) Presence of cardiac pacemaker (Acute) Rhabdomyolysis (Acute) Condition: Fair - Instructions Referrals: Gabino De Paz MD [Staff Physician] - Kam Quinn MD [Staff Physician] - Dina Lawson MD [Staff Physician] - - Home Medications Comprehensive Discharge Medication List: Ambulatory Orders Aspirin [Aspirin EC] 81 mg PO DAILY 01/17/20 Atorvastatin Ca [Lipitor] 80 mg PO HS 01/17/20 Isosorbibe Dinit/Hydralazine [Bidil Tablet] 20 - 37.5 mg PO TID 01/17/20 Metoprolol Succinate 100 mg PO DAILY 01/17/20 Nitroglycerin 0.3 mg SL PRN 01/17/20 Heparin - 5,000 unit SQ BID vial 01/24/20 Insulin Sliding Scale [Novolog Vial Sliding Scale -] 1 vial SQ ACHS units 01/24/20 Repaglinide [Prandin -] 1 mg PO TIDAC tablet 01/24/20 Furosemide [Lasix -] 40 mg PO DAILY tablet 01/27/20 hydrALAZINE HCL [Apresoline -] 10 mg PO BID #0 tablet 01/27/20
[2020-01-27] MEDS: ATORVASTATIN CA 80 MG TABLET (FP) PO SCH (21:02)
[2020-01-27] MEDS ORDERED: DOCUSATE SODIUM 100 MG CAPSULE (FP) PO ONE (23:40)
[2020-01-28] MEDS ORDERED: PT OWN MED DRAWER 7, Y5N ONE ×2 (05:39→08:54)
[2020-01-28] MEDS: INSULIN SLIDING SCALE (NOVOLOG) 1 VIAL SQ SCH ×2 (06:02→10:53)
[2020-01-28] MEDS: REPAGLINIDE 0.5 MG TABLET (FP) PO SCH ×2 (06:02→10:56)
[2020-01-28 09:00] VITALS: BP 133/77; PULSE 81; TEMP 98.2
[2020-01-28] MEDS: ISOSORBIDE DINITRATE 10 MG TABLET (FP) PO SCH (10:05)
[2020-01-28] MEDS: FUROSEMIDE 40 MG TABLET (FP) PO SCH (10:05)
[2020-01-28] MEDS: PANTOPRAZOLE 40 MG TABLET PO SCH (10:05)
[2020-01-28] MEDS: hydrALAZINE HCL 10 MG TABLET PO SCH (10:05)
[2020-01-28] MEDS: ASPIRIN COATED 81 MG TABLET.EC PO SCH (10:05)
--- NOTE | 2020-02-02 16:39 | DS ---
Physical Examination Vital Signs: Vital Signs Temperature 98.2 F 01/28/20 08:59 Pulse Rate 81 01/28/20 08:59 Respiratory Rate 20 01/28/20 09:00 Blood Pressure 133/77 01/28/20 08:59 O2 Sat by Pulse Oximetry (%) 99 01/28/20 09:00 Labs: CBC, BMP 01/26/20 05:50 01/27/20 06:05 Discharge Summary Problems reviewed: Yes Reason For Visit: ACUTE HYPERGLYCEMIA ACUTE CORONARY SYNDROME Condition: Fair - Instructions Referrals: Gabino De Paz MD [Staff Physician] - Desirae Luna MD [Staff Physician] - Kam Quinn MD [Staff Physician] - Dina Lawson MD [Staff Physician] - Disposition: [facility] - Home Medications Comprehensive Discharge Medication List: Ambulatory Orders Aspirin [Aspirin EC] 81 mg PO DAILY 01/17/20 Atorvastatin Ca [Lipitor] 80 mg PO HS 01/17/20 Isosorbibe Dinit/Hydralazine [Bidil Tablet] 20 - 37.5 mg PO TID 01/17/20 Metoprolol Succinate 100 mg PO DAILY 01/17/20 Nitroglycerin 0.3 mg SL PRN 01/17/20 Heparin - 5,000 unit SQ BID vial 01/24/20 Insulin Sliding Scale [Novolog Vial Sliding Scale -] 1 vial SQ ACHS units 01/24/20 Repaglinide [Prandin -] 1 mg PO TIDAC tablet 01/24/20 Furosemide [Lasix -] 40 mg PO DAILY tablet 01/27/20 hydrALAZINE HCL [Apresoline -] 10 mg PO BID #0 tablet 01/27/20
== END 2020-01-28 11:09 | DRG 637 ==
LOC: JER 13:53 → JERBED 19:14 → J4W 21:00
PROVIDERS: ADMIT Internal Medicine; ATTEND Internal Medicine
DX: E11.65 Type 2 diabetes mellitus with hyperglycemia (principal); G93.41 Metabolic encephalopathy; M62.82 Rhabdomyolysis; N17.9 Acute kidney failure, unspecified; I13.0 Hypertensive heart and chronic kidney disease with heart failure and stage 1 through stage 4 chronic kidney disease, or unspecified chronic kidney disease; N18.4 Chronic kidney disease, stage 4 (severe); G30.9 Alzheimer's disease, unspecified; F02.80 Dementia in other diseases classified elsewhere, unspecified severity, without behavioral disturbance, psychotic disturbance, mood disturbance, and anxiety; R79.89 Other specified abnormal findings of blood chemistry; E11.42 Type 2 diabetes mellitus with diabetic polyneuropathy; I25.119 Atherosclerotic heart disease of native coronary artery with unspecified angina pectoris; E11.22 Type 2 diabetes mellitus with diabetic chronic kidney disease; I50.9 Heart failure, unspecified; I45.10 Unspecified right bundle-branch block; W18.30XA Fall on same level, unspecified, initial encounter; Y92.098 Other place in other non-institutional residence as the place of occurrence of the external cause; Z91.14 Patient's other noncompliance with medication regimen; Z95.0 Presence of cardiac pacemaker; I25.2 Old myocardial infarction
CPT/HCPCS: 36415; 70450-TC; 71045-TC-FY; 72125-TC; 73030-TC-LT-FY; 73030-TC-RT-FY; 73110-TC-LT-FY; 73130-TC-LT-FY; 73523-TC-FY; 73560-TC-LT-FY; 73560-TC-RT-FY; 80053; 80061; 81003; 82010; 82550; 82553; 82803; 82962; 83036; 83721; 83880; 84484; 85025; 85610; 85730; 87086; 93005; 93010; 93306-TC; 97116-GP; 97161-GP; 97163-GP; 99285-25; J1644; U0003